=== PATIENT | female | born 1950 | race Caucasian/White ===

== ENCOUNTER 2021-01-06 09:10 | Outpatient (CLI) | payer MEDICARE, SELFPAY ==
--- NOTE | ~2021-01-06 | MM_ITS ---
EXAMINATION: MM screening [facility] BI w phillip HISTORY: Screening mammogram TECHNIQUE: Craniocaudal and mediolateral oblique 3-D tomosynthesis images were obtained and synthetic 2-D images were generated. CAD analysis was submitted and interpreted. COMPARISON: 07/18/2018, 12/24/2016, 01/26/2015 BREAST PARENCHYMAL COMPOSITION: The breasts are heterogeneously dense, which may obscure small masses . FINDINGS: There is no evidence of suspicious mass, calcification, or architectural distortion to sugg est malignancy in either breast. There has been no suspicious interval change. IMPRESSION: 1. No mammographic evidence of malignancy. 2. Recommend routine screening mammography in one year. BI-RADS Category 1: Negative Reviewed, dictated and finalized at location A.
== END 2021-01-06 09:11 | disposition home or self-care (01) ==
LOC: ANHIMG 09:14
PROVIDERS: PCP Emergency Medicine; Visit Provider Obstetrics & Gynecology
DX: Z12.31 Encounter for screening mammogram for malignant neoplasm of breast (principal)
CPT/HCPCS: 77063; 77067

== ENCOUNTER 2021-08-19 14:58 | Emergency (ER) | payer MEDICARE, SELFPAY ==
--- NOTE | ~2021-08-19 | XR_ITS ---
XR wrist RT min 3V 08/19/2021 15:15 Indication: Right wrist pain after fall Procedure: 4 views of the right wrist Comparison: No prior studies for comparison. Findings: There is a nondisplaced intra-articular fracture distal aspect of the radius. 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 No significant s oft tissue abnormality. No radiopaque foreign bodies. Impression: 1: Nondisplaced intra-articular fracture distal aspect of the radius involving the radial styloid. Reviewed, dictated and finalized at location A. E TESTER Impression: 1: Nondisplaced intra-articular fracture distal aspect of the radius involving the radial styloid.
[2021-08-19 15:03] VITALS: BP 127/61; PULSE 77; RESP 18; TEMP 37.2; O2SAT 100
--- NOTE | 2021-08-19 15:33 | ED.UPPEXIN ---
HPI - Extremity Injury (Upper) General Chief Complaint: Extremity Injury, Upper Stated Complaint: rt arm/wrist inj Time Seen by Provider: 08/19/21 15:15 Source: patient, RN notes reviewed and old records reviewed Mode of arrival: ambulatory Limitations: no limitations History of Present Illness HPI narrative: 70-year-old female who presents to [facility] accompanied by cousin with complaints of injury to her right wrist after fall. Patient reports she fell in her driveway at home yesterday with pain and bruising to right wrist area with swelling present and limited ROM of her right wrist with deformity noted. Patient has strong right radial pulse with finger warm and pink, has been using ice to her wrist area. Patient usually lives in [place] in winter but here in area because of sudden of her brother. complaint: injury to: right and wrist Onset (ago): day(s) (1) Related Data Home Medications Medication Instructions Recorded Confirmed ezetimibe mg 08/19/21 ezetimibe mg 08/19/21 Allergies Allergy/AdvReac Type Severity Reaction Status Date / Time Penicillins Allergy Intermediate RASH Verified 08/20/21 08:10 Review of Systems Review of Systems: CONSTITUTIONAL: Denies fever, chills, or sweats. EYES: Denies visual changes, redness, or discharge. ENT: Denies rhinorrhea, congestion, sore throat, or otalgia. CARDIOVASCULAR: Denies chest pain, palpitations, or edema. RESPIRATORY: Denies cough or dyspnea. GASTROINTESTINAL: Denies abdominal pain, nausea, vomiting, or diarrhea. GENITOURINARY: Denies dysuria or hematuria. SKIN: Denies rash or itching. MUSCULOSKELETAL: Denies back pain, positive for right wrist pain with bruising and swelling, or myalgia. NEUROLOGIC: Denies headache, numbness, or weakness. PSYCHIATRIC: Denies anxiety or depression. All systems reviewed & are unremarkable except as noted in HPI and below PMFSH Past Medical History Medical History (Updated 08/20/21 @ 17:02 by Salome Anaya NP) Asthma as child Depression HLD (hyperlipidemia) IBS (irritable bowel syndrome) Surgical History Surgical History (Updated 08/20/21 @ 09:12 by Francisca Holley MD) H/O laparoscopy Family History Family History Sibling Family history of cardiovascular disease Mother Acute myocardial infarction, Onset Age: 84 Father Acute myocardial infarction, Onset Age: 90 Other Family history of congenital heart disease Social History Social History (Updated 08/19/21 @ 16:03 by Salome Anaya NP) Smoking status: Never smoker Alcohol intake: current Substance use: never Gender identity (if verbalized by the patient): Female Comments At time of signature, agree with nursing past medical, surgical, social and family history. There is no relevant family history pertinent to the presenting complaint Exam Narrative: GENERAL: Well-appearing, well-nourished, and in no acute distress. HEAD: Normocephalic, atraumatic. EYES: PERRLA and EOMI. ENT: Nares clear, no rhinorrhea or epistaxis. Mucous membranes moist. NECK: Supple.no lymphadenopathy CHEST: Clear to auscultation. No respiratory distress.SAO2 100% on room air HEART: Regular rate and rhythm. No murmur heard. Normal peripheral pulses. ABDOMEN: Soft, nontender, nondistended, normal active bowel sounds. EXTREMITIES: Normal range of motion. No edema. Exception noted to right wrist which is bruised wit noted deformity and pain with limited mobility, sensation and circulation is intact. SKIN: Warm, dry, no rash. NEURO: No focal deficits. Alert and oriented x3. Course Course Level of Care: Express Care Visit Vital Signs Vital signs: Vital Signs Temperature 37.2 C 08/19/21 15:03 Pulse Rate 77 08/19/21 15:03 Respiratory Rate 18 08/19/21 15:03 Blood Pressure 127/61 08/19/21 15:03 Pulse Oximetry 100 08/19/21 15:03 Temperature 37.2 C 08/19
--- NOTE | 2021-08-19 16:41 | PC.NURSE ---
director call center sales ortho does not return multple calls. pt will attempt to follow up with primary on Saturday.
== END 2021-08-19 16:54 | disposition home or self-care (01) ==
PROVIDERS: Emergency Provider Registered Nurse; PCP Emergency Medicine
DX: S69.91XA Unspecified injury of right wrist, hand and finger(s), initial encounter (principal); S52.514A Nondisplaced fracture of right radial styloid process, initial encounter for closed fracture; W19.XXXA Unspecified fall, initial encounter; E78.5 Hyperlipidemia, unspecified
CPT/HCPCS: 29125; 73110; 99214; A4565; G0463

== ENCOUNTER 2021-08-20 08:00 | Emergency (ER) | payer MEDICARE, SELFPAY ==
[2021-08-20] VITALS (10 sets, daily range): BP systolic 124–137; BP diastolic 62–78; PULSE 66–95; RESP 13–21; TEMP 36.3; O2SAT 95–100
--- NOTE | ~2021-08-20 | CT_ITS ---
EXAMINATION: CT abdomen pelvis w con DATE: 08/20/2021 10:28 INDICATION: Right lower quadrant pain after fall. Blood in stool. Irritable bowel syndrome. TECHNIQUE: Computed tomography (CT) of the abdomen and pelvis was performed with 100 cc Omnipaque 350 intravenous contrast. The dose-length product was 217.08 mGy-cm. Automated exposure control and iter ative reconstruction technique were employed. COMPARISON: None. FINDINGS: Lung bases are unremarkable. Heart size normal. No significant pleural or pericardial effus ion. No significant vascular abnormality. No lymphadenopathy. There is abnormal thickening of the transverse colon, consistent with colitis. No obstruction. No kandice dence for perforation or abscess. There are liver and bilateral renal cysts. The spleen, pancreas, adrenal glands are unremarkable. No significant hydronephrosis. Moderate lumbar spondylosis. There is dextroscoliosis. IMPRESSION: 1. Abnormal thickening of a segment of the transverse colon, compatible with colitis. Reviewed, dictated and finalized at location A. CIPAL EMBEDDED SOFTWARE ENGINEER IMPRESSION: 1. Abnormal thickening of a segment of the transverse colon, compatible with co litis.
[2021-08-20] MEDS: LACTATED RINGERS 1,000 ML 999 ML IV CONT (08:44)
--- NOTE | 2021-08-20 08:52 | ED.ABDPAIN ---
HPI - Abdominal Pain General Chief Complaint: Abdominal Pain Stated Complaint: fell 2 days ago, pain to right side Time Seen by Provider: 08/20/21 08:17 Source: patient, RN notes reviewed and old records reviewed Mode of arrival: ambulatory Limitations: no limitations History of Present Illness HPI narrative: This is a 70 year old female with history of IBS, endometriosis, and hyperlipidemia who presents for evaluation of right lower abdominal pain and bloody bowel movements. Patient states she accidentally slipped and fell 2 days ago. She fell onto her right side injuring her right wrist, but she denies hitting her head. She was seen at [facility] and she was diagnosed right right wrist fracture. She developed right lower abdominal pain yesterday. She reports her pain has been constant and it was severe on onset. Her pain has improved but it is still present this morning. She reports having diarrhea yesterday and she also had BM in which she passed bright red blood. She thought her pain was due to IBS but her pain persisted even having have diarrhea. She has nausea last night but denies vomiting, fever or chills. She also denies taking blood thinners. She denies history of bloody bowel movements. Her last colonoscopy was performed 4 years ago . Related Data Home Medications Medication Instructions Recorded Confirmed ezetimibe mg 08/19/21 ezetimibe mg 08/19/21 Allergies Allergy/AdvReac Type Severity Reaction Status Date / Time Penicillins Allergy Intermediate RASH Verified 08/20/21 08:10 Review of Systems Review of Systems: All systems reviewed & are unremarkable except as noted in HPI and below PMFSH Past Medical History Medical History (Updated 08/20/21 @ 17:02 by Salome Anaya NP) Asthma as child Depression HLD (hyperlipidemia) IBS (irritable bowel syndrome) Surgical History Surgical History (Updated 08/20/21 @ 09:12 by Francisca Holley MD) H/O laparoscopy Family History Family History Sibling Family history of cardiovascular disease Mother Acute myocardial infarction, Onset Age: 84 Father Acute myocardial infarction, Onset Age: 90 Other Family history of congenital heart disease Social History Social History (Updated 08/19/21 @ 16:03 by Salome Anaya NP) Smoking status: Never smoker Alcohol intake: current Substance use: never Gender identity (if verbalized by the patient): Female Exam Const: General: no acute distress and alert Orientation/consciousness: patient oriented x3 Eyes: EOM: EOMs intact bilaterally Resp: Effort & Inspection: normal respiratory effort and no retractions Auscultation: clear to auscultation bilaterally Cardio: Rate: regular rate Rhythm: regular rhythm Heart sounds: no murmurs GI: GI Palp: Yes Soft to palpation, Yes Tenderness to palpation present (GI) (RLQ), No Guarding due to palpation present (GI) and No Rigid due to palpation Auscultation: bowels sounds not normal Back/Spine/Pelvis: Back: no CVA tenderness Skin: General skin exam: normal color Rashes: no rashes Neuro: General: patient oriented x3, moves all extremities and CN's II-XI intact bilaterally Extrem: Other: right wrist in short arm OCL splint, able to move fingers distally Psych: Mental Status: mental status grossly normal Affect: normal affect Course Reevaluation(s) Reevaluation #1: I have discussed with patient that labs are unremarkable but CT shows colitis. She has not passed blood in her stool since yesterday. She has declined rectal exam to evaluation source of bleeding such as hemorrhoid or active bleeding. Date: 08/20/21 Time: 11:09 Vital Signs Vital signs: Vital Signs Temperature 97.4 F L 08/20/21 08:03 Pulse Rate 95 08/20/21 08:03 Respiratory Rate 18 08/20/21 08:03 Blood Pressure 136/62 08/20/21 08:03 Pulse Oximetry 10
[2021-08-20 09:31] LABS: INR 1.2; Partial Thromboplastin Time 31.8 SECONDS (22.3-36.8); Prothrombin Time 14.6 Seconds (11.1-14.7)
[2021-08-20 09:35] LABS: Add Urine Microscopic? YES; Appearance Urine Clear (Clear); Bilirubin Urine Negative (Negative); Blood Urine Negative (Negative); Color Urine Yellow (Yellow); Glucose Urine UA Negative (Negative); Ketones Urine 1+ mg/dL (Negative); Leukocyte Esterase Ur Negative LEU/UL (Negative); Mucus Urine Rare /lpf; Nitrate Urine Negative (Negative); Protein Urine Negative (Negative); RBC Urine 0-2 /hpf (0-2); Specific Grav Ur 1.023 (1.001-1.035); Squamous Epithelial Cell Urine Rare /hpf (Few); Urobilinogen Urine Negative mg/dL (<2.0)
[2021-08-20 09:55] LABS: Alanine Aminotransferase 18 U/L (4-35); Albumin Level 4.6 g/dL (3.5-5.1); Alkaline Phosphatase 70 U/L (38-126); Anion Gap 10 mmol/L (8-16); Aspartate Amino Transferase 41 U/L (14-36); Bilirubin,Total 1.1 mg/dL (0.2-1.3); Blood Urea Nitrogen 15 mg/dL (7-17); Calcium 9.2 mg/dL (8.4-10.2); Carbon Dioxide 23 mmol/L (22-30); Chloride 101 mmol/L (98-107); Estimated CRCL calculation 59 ml/min; Estimated Glomerular Filt Rate > 60; Glucose 102 mg/dL (65-110); Potassium 4.1 mmol/L (3.4-5.0); Sodium 134 mmol/L (137-145)
[2021-08-20 10:31] LABS: Basophils Absolute Auto 0.1 K/mm3 (0.0-0.1); Basophils Percent Auto 0.6 % (0.2-1.2); Eosinophils Absolute Auto 0.2 K/mm3 (0-0.3); Hematocrit 40.8 % (37.0-47.0); Hemoglobin 13.5 g/dL (12.0-15.0); Immature Granulocyte Absolute 0.03 K/mm3 (0.00-0.031); Immature Granulocyte Percent A 0.4 % (0-0.5); Lymphocytes Absolute Auto 0.81 K/mm3 (0.9-3.2); Lymphocytes Percent Auto 10.4 % (18.3-44.2); Mean Corpuscular HGB Conc 33.1 g/dl (32-36); Mean Corpuscular Hemoglobin 32.2 pg (26-34); Mean Corpuscular Volume 97.4 fl (80-100); Mean Platelet Volume 10.8 fl (7.4-10.4); Monocytes Absolute Auto 0.6 K/mm3 (0.1-0.6); Monocytes Percent Auto 7.8 % (2.6-8.5); Neutrophils Absolute Auto 6.2 K/mm3 (1.3-6.7); Neutrophils Percent Auto 78.8 % (45.5-73.1); Platelet Count Result 270 k/mm3 (150-375); Red Blood Count 4.19 M/mm3 (4.2-5.4); White Blood Count 7.8 K/mm3 (4.5-10.0)
== END 2021-08-20 11:30 | disposition home or self-care (01) ==
PROVIDERS: Emergency Provider General Practice; PCP Emergency Medicine
DX: K52.9 Noninfective gastroenteritis and colitis, unspecified (principal); E78.5 Hyperlipidemia, unspecified; K58.9 Irritable bowel syndrome, unspecified; J45.909 Unspecified asthma, uncomplicated; N80.9 Endometriosis, unspecified
CPT/HCPCS: 36415; 74177; 80053; 81001; 85025; 85610; 85730; 96360; 99284; J7120; Q9967

== ENCOUNTER 2022-10-08 09:19 | Outpatient (CLI) | payer MEDICARE, SELFPAY ==
--- NOTE | ~2022-10-08 | MM_ITS ---
EXAMINATION: MM screening [facility] BI w phillip HISTORY: Screening mammogram TECHNIQUE: Craniocaudal and mediolateral oblique 3-D tomosynthesis images were obtained and synthetic 2-D images were generated. CAD analysis was submitted and interpreted. COMPARISON: 01/06/2021, 07/18/2018, 12/24/2016 bilateral screening mammogram examinations BREAST PARENCHYMAL COMPOSITION: The breasts are heterogeneously dense, which may obscure small masses . FINDINGS: Scattered bilateral benign-appearing microcalcifications are again present. There is no kandice dence of suspicious mass, calcification, or architectural distortion to suggest malignancy in either breast. There has been no suspicious interval change. IMPRESSION: 1. No mammographic evidence of malignancy. 2. Recommend routine screening mammography in one year. BI-RADS Category 2: Benign finding(s). Reviewed, dictated and finalized at location A.
== END 2022-10-08 09:20 | disposition home or self-care (01) ==
LOC: ANHIMG 09:23
PROVIDERS: PCP Emergency Medicine; Visit Provider Emergency Medicine
DX: Z12.31 Encounter for screening mammogram for malignant neoplasm of breast (principal)
CPT/HCPCS: 77063; 77067

== ENCOUNTER 2023-06-07 09:45 | Outpatient (CLI) | payer MEDICARE, SELFPAY ==
[2023-06-07 09:59] LABS: Basophils Absolute Auto 0.1 K/mm3 (0.0-0.1); Basophils Percent Auto 0.7 % (0.2-1.2); Eosinophils Absolute Auto 0.3 K/mm3 (0-0.3); Eosinophils Percent Auto 3.7 % (0-4.4); Hematocrit 38.2 % (37.0-47.0); Hemoglobin 12.5 g/dL (12.0-15.0); Immature Granulocyte Absolute 0.01 K/mm3 (0.00-0.031); Immature Granulocyte Percent A 0.1 % (0-0.5); Lymphocytes Absolute Auto 1.76 K/mm3 (0.9-3.2); Lymphocytes Percent Auto 26.2 % (18.3-44.2); Mean Corpuscular HGB Conc 32.7 g/dl (32-36); Mean Corpuscular Hemoglobin 31.1 pg (26-34); Mean Platelet Volume 9.4 fl (7.4-10.4); Monocytes Absolute Auto 0.6 K/mm3 (0.1-0.6); Monocytes Percent Auto 8.9 % (2.6-8.5); Neutrophils Percent Auto 60.4 % (45.5-73.1); Platelet Count Result 295 k/mm3 (150-375); Red Blood Count 4.02 M/mm3 (4.2-5.4); Red Cell Distribution Width 12.9 % (11.5-14.5); White Blood Count 6.7 K/mm3 (4.5-10.0)
== END 2023-06-07 09:46 | disposition home or self-care (01) ==
LOC: ANHLAB 09:47
PROVIDERS: PCP Emergency Medicine; Visit Provider Internal Medicine Hematology & Oncology
DX: D68.69 Other thrombophilia (principal)
CPT/HCPCS: 36415; 85025

== ENCOUNTER 2024-01-01 14:24 | Emergency (ER) | payer MEDICARE, SELFPAY ==
[2024-01-01 14:31] VITALS: BP 152/71; PULSE 77; RESP 16; TEMP 36.9; O2SAT 100
[2024-01-01 14:32] VITALS: BP 152/71; PULSE 77; RESP 16; TEMP 36.9; O2SAT 100
--- NOTE | 2024-01-01 14:49 | ED.FEMALEGU ---
HPI - Female Genitourinary General Chief complaint: Urogenital-Female Stated complaint: Poss UTI Time Seen by Provider: 01/01/24 14:49 Source: patient and RN notes reviewed Mode of arrival: ambulatory Limitations: no limitations History of Present Illness HPI Narrative: 73-year-old female presented for complaint of burning with urination, frequency and suprapubic pressure. Onset 3 days. denies hematuria, nausea, vomiting, abdominal pain, flank pain, constipation, diarrhea, fevers or chills. last UTI was 03/2023. Related Data Home Medications Medication Instructions Recorded Confirmed ezetimibe 10 mg tablet mg 08/19/21 03/20/23 alendronate 70 mg tablet 70 mg PO WEEKLY 02/27/23 03/20/23 fluticasone propionate 50 See Rx Instructions .Route .COMPLEX 02/27/23 03/20/23 mcg/actuation nasal spray,suspension folic acid 1 mg tablet 1 mg PO DAILY 02/27/23 03/20/23 spironolactone 100 mg tablet 100 mg PO DAILY 02/27/23 03/20/23 Allergies Allergy/AdvReac Type Severity Reaction Status Date / Time Penicillins Allergy Intermediate RASH Verified 03/20/23 10:15 Review of Systems Review of Systems: CONSTITUTIONAL: Denies body aches, fever, chills, or sweats. CARDIOVASCULAR: Denies chest pain, palpitations, or edema. RESPIRATORY: Denies cough or dyspnea. GASTROINTESTINAL: Denies abdominal pain, nausea, vomiting, or diarrhea. GENITOURINARY: Reports dysuria, frequency, denies urgency, hematuria, flank pain SKIN: Denies rash, itching, or wounds. MUSCULOSKELETAL: Denies back pain or myalgia. [facility] Past Medical History Medical History Asthma as child Depression HLD (hyperlipidemia) IBS (irritable bowel syndrome) Surgical History Surgical History H/O laparoscopy Family History Family History Sibling Family history of cardiovascular disease Mother Acute myocardial infarction, Onset Age: 84 Father Acute myocardial infarction, Onset Age: 90 Other Arthritis Family history of congenital heart disease Heart disease Hypertension Social History Social History Smoking status: Never smoker Alcohol intake: current Drinks per week: 2 Substance use: never Current Housing: Decline to Answer Concerned About Future Housing: Decline to Answer Difficulty Paying Gas/Electric Bills: Decline to Answer Difficulty Paying for Meds: Decline to Answer Currently Unemployed: Decline to Answer Education: Decline to Answer Difficulty w/ Childcare or Family Care: Decline to Answer Living arrangements: with family Additional occupation/education comments: [employer] Gender identity (if verbalized by the patient): Female Comments At time of signature, I have reviewed and agree with nursing past medical, surgical, social and family history unless otherwise noted. Please see nursing chart for further information. There is no relevant family history pertinent to the presenting complaint Exam Narrative: GENERAL: Well-appearing and in no acute distress. ENT: Mucous membranes pink and moist. NECK: Normal AROM. Supple. CHEST: No respiratory distress. Clear to auscultation. HEART: Regular rate and rhythm. ABDOMEN: Soft, nontender, nondistended, normal active bowel sounds. No CVA tenderness SKIN: Warm, dry, no rash. NEURO: No focal deficits. Alert and oriented x3. Gait steady. PSYCH: Normal affect. Course Course Emergency Course: Patient is aware of diagnosis, understands and agrees to treatment plan. Anticipatory guidance given. Patient agrees to follow-up as directed and is aware of reasons to seek care at the emergency department. Portions of this record may have been created with voice recognition software Level of Care: [facility] Care Visit Vi
[2024-01-01 14:50] LABS: EDUAAPPEAR Cloudy; EDUABILI Negative; EDUABLOOD Negative; EDUACOLOR1 Yellow; EDUAGLUCOSE Negative; EDUAKETONE Negative; EDUALEUKO 2+; EDUANITRATE Negative; EDUAPH 6.5; EDUAPROTEIN Negative; EDUAUROBILI 0.2
== END 2024-01-01 15:02 | disposition home or self-care (01) ==
PROVIDERS: Emergency Provider Nurse Practitioner Family; PCP Emergency Medicine
DX: R30.0 Dysuria (principal); E78.5 Hyperlipidemia, unspecified
CPT/HCPCS: 81003; 87077; 87086; 87088; 87186; 99213; G0463

== ENCOUNTER 2024-11-02 09:53 | Outpatient (CLI) | payer MEDICARE, SELFPAY ==
--- NOTE | ~2024-11-02 | MM_ITS ---
EXAMINATION: MM screening ariana BI w phillip HISTORY: Screening TECHNIQUE: Craniocaudal and mediolateral oblique 3-D tomosynthesis images were obtained and synthetic 2-D images were generated. CAD analysis was submitted and interpreted. COMPARISON: Comparison to multiple prior studies sequentially, with oldest reviewed study dated 01/26. BREAST PARENCHYMAL COMPOSITION: Dense: The breasts are heterogeneously dense, which may obscure small masses FINDINGS: There is no evidence of suspicious mass, calcification, or architectural distortion to sugg est malignancy in either breast. There has been no suspicious interval change. IMPRESSION: 1. No mammographic evidence of malignancy. 2. Recommend routine screening mammography in one year. BI-RADS Category 1: Negative Reviewed, dictated and finalized at location A.
--- OUTSIDE RECORDS SUMMARY | 2024-11-02 10:39 | XMS_ITS | Continuity of Care Document ---
Author Organization [facility] Address [address] [facility] [facility] [address] [place] [address] Phone Care Team Providers Care Clinical Nurse Leader Name Role Phone Fox Vides DO Unavailable [...] Copied on Encounter Offic/outpt E&m Estab Low-mod [facility], [address] [address], [place], [place], [id number], tel:[phone] /[facility] Lumbar (chief complaint) Right hip painLumbar spondylosisLu mbar degenerative disc diseaseLumbar radiculopathy Lumbar spine painIt band syndrome, right Aug- 4 Peewee Braxton. [address] [facility], [facility] [address], [place], [place], [address] , [place]. tel:[phone] Referring Provider: Fox Vides, [address] [facility] [address] [facility], [place], [address] . tel:[phone] Offic/outpt E&m New Mod-hi 45 [facility], [address] [address], [place], [place], [id number], [place] tel:[phone] /[facility] Right hip (chief complaint) Lumbar spine painRight hip painLumbar degenerative disc diseaseLumbar spondylosisLu mbar radiculopathy It band syndrome, right 4 Peewee Braxton. [address] [facility], [facility] [address], [place], [place], [id number] , [place]. tel:[phone] Referring Provider: Fox Vides, [address] [facility] [address], [place], [address] . tel:[phone] Family History Family Member Type Diagnosis Age At Onset Brother Problem (finding) Cardiovascular disease Mother Problem (finding) Cardiovascular disease Mother Problem (finding) Gout Brother Problem (finding) Gout Father Problem (finding) Cardiovascular disease Mother Problem (finding) Colitis Mother Problem (finding) Migraines Payers Payer name Insurance type Covered alliance party ID Authoriza tion(s) Aetna (R) CI [id number] Social History Type Description Quantity Date Captured [...] weekly. She reports she was seen in [place]. No imaging or records available.6 weeks of [...] I have also encouraged her to use [id number] Voltaren over the trochanter on the right. She can ice after activity as well. I will be happy to follow-up with her on an as-needed basis. Patient Care Teams Name Effective Dates (start - stop) Status Members No Information
--- OUTSIDE RECORDS SUMMARY | 2024-11-02 10:39 | XMS_ITS | Continuity of Care Document ---
Author Name [facility] Organization [facility] Care Team Providers Care Engineering Faculty Name Role Phone [facility] Unavailable Unavailable Allergies, Adverse Reactions, Alerts Combined list of allergies from Department of Defense and Veterans Affairs facilities. It does not include entries that were removed or entered in error. Substance Category Reaction Severity Reaction type Status Date Reported Comments Source PENICILLINS Drug allergy (disorder) Unknown active 08/23/2004 [facility] Procedures Combined list of: 1) Procedures from Department of Veterans Affairs facilities going back up to thelast 18 months, not all VA non-surgical procedures are included; 2) All procedures from the Department of Defense facilities. Procedure Procedure Type Code Date Perfomer Comments Sourc e ELECTROCARDIOGRAM, ROUTINE ECG WITH AT LEAST 12 LEADS; WITH INTERPRETATION AND REPORT 05/07/2003 [facility] Social History Combined list of available smoking, tobacco, and other social history from Department of Defense and Veterans Affairs facilities. Social History Type Response Date Comment Sourc e This section is an empty social history section. [facility]
--- OUTSIDE RECORDS SUMMARY | 2024-11-02 10:40 | XMS_ITS | Encounter Summary ---
Author Organization [facility] Address [address] [place] [address] Care Team Providers Care Color Coater Name Role Phone Maynor Orourke MD Unavailable Harry Courtney MD Primary Care Provider [phone] Encounter Details Date Type Department Care Team (Late st Contact Info) Description 01/21/2018 Lab Requisition [facility] Care DermPath Lab 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 Gender Identity Not on file Sexual Orientation Not on file documented as of this encounter Plan of Treatment Not on file documented as of this encounter Procedures Procedure Name Priority Date/Time Associated Diagnosis Comments DERMATOPATH TECHNICAL REPORT Routine 01/20/2018 12:00 AM CDT documented in this encounter Results * DERMATOPATH TECHNICAL REPORT (01/20/2018 12:00 AM CDT) Case Report Dermatopathology Report Case: [id number] Authorizing Provider: Angeli Jenkins MD Collected: 01/20/2018 12:00 AM Pathologist: Ximena Ch MD Received: 01/21/2018 06:15 AM Specimen: Skin, right upper lip 8 11:33 AM CDT DERMATOPATHOLOGY LABORATORY Clinical History R/O BCC vs angioma red papule. Check margins. 11:33 AM CDT DERMATOPATHOLOGY LABORATORY Gross Description Specimen A: Received is one formalin filled container labeled with the patient's name and designated right upper lip. The specimen consists of a shave biopsy measuring [id number]. The margin is inked green. Jar 0. [facility] Dermatopathology Laboratory performed the technical component only. 11:33 AM CDT DERMATOPATHOLOGY LABORATORY Embedded Images 11:33 AM CDT DERMATOPATHOLOGY LABORATORY DISCLAIMER An external and internal positive and negative controls are appropriate for the histochemical, immunohistochemical and immunofluorescence stain(s) in this case (if any), except where stated explicitly. The performance characteristics of the stain(s) cited in this report were developed and its performance characteristic determined by the Dermatopathology Laboratory at [facility]. These tests need not be, and therefore are not, approved by the [place] Food and Drug Administration. The tests are used for clinical purposes. 11:33 AM T DERMATOPATHOLOGY LABORATORY Pathology/Cytolog y TISSUE SPECIMEN FROM SKIN / Unknown 01/20/2018 01/21/2018 6:15 AM CDT Angeli Jenkins MD LAB - PATHOLOGY/CYTOLOGY ORD ERABLES Final Result DERMATOPATHOLOGY LABORATORY [facility] - Department of Dermatology [address] [place] [address], 5th Floor Lab [address] [phone] documented in this encounter Visit Diagnoses Not on filedocumented in this encounter Care Teams Color Coater Relationship Specialty Start Date End Date Harry Courtney MD [address] [facility] [address] [place] [address] PCP - General Internal Medicine 02/16/20 [place] [address] [facility] [facility] [address] [place] [address] Orthopedic Surgery 01/21/18 documented as of this encounter
--- OUTSIDE RECORDS SUMMARY | 2024-11-02 10:40 | XMS_ITS ---
Author Organization [facility] Address [address] [place] [address] Care Team Providers Care Criminal Justice Program Director Name Role Phone Harry Courtney MD Primary Care Provider Unavail able Jared Bateman Unavailable [phone] REASON FOR VISIT Melena, 5ft4 132 Medications Medication SIG (Take, Route, Frequency, Duration) Notes Start Date End Date Status Nortriptyline HCl Ac tive ALPRAZolam Active OTC/Vitamins Vit B12 Active Dicyclomine HCl 10 MG 1 capsules Orally Three times a day PRN for 30 day(s) 09/08/2021 04/28/2024 Not-Taking NexIUM 20 MG 1 capsule Orally prn Active Alendronate Sodium A ctive Spironolactone Activ e Ezetimibe Active traZODone HCl 04/28/2024 Not-T aking Encounters Encounter Location Date Provider Diagnosis [facility] [address] [place] [address] 05/02/2024 Jared Bateman Heartburn R12 ; Melena K92.1 and Other specified disease of esophagus K22.89 Assessments Encounter Date Diagnosis (ICD Code) Assessment Notes Treatment Notes Treatment Clinical Notes Section Notes 05/02/2024 Heartburn (ICD-10 - R12) 05/02/2024 Melena (ICD-10 - K92.1) 05/02/2024 Other specified disease of esophagus (ICD-10 - K22.89) Plan Of Treatment Next Appt Details Follow Up: Call to set up a SBS DX: melena, Reason: Progress Notes * Renetta DEVLIN LDOB:1950 (73 yo F)Acc No.[id number]:05/02/2024 Patient: Renetta Cortes Provider: Marcell Bateman M.D. :1950 A ge:73 Y S ex:Female Date:05/02/2024 Address:[address] [place] [address] Pcp:Harry Courtney MD Subjective: * Chief Complaints: * M anurag, 5ft4 132 * Medical History: * Surgical History: * Hospitalization/Major Diagno stic Procedure: * Medications: T akingNexIUM 20 MG Capsule Delayed Release 1 capsule Orally prnNortriptyline HCl Alendronate Sodium Spironolactone Ezetimibe ALPRAZolam OTC/Vitamins , Notes: Vit [id number] NexIUM 20 MG Capsule Delayed Release 1 capsule Orally prnTaking Nortriptyline HCl Taking Alendronate Sodium Taking Spironolactone Taking Ezetimibe Taking ALPRAZolam Taking OTC/Vitamins , Notes: Vit [id number] HCl , stop date 04/28/2024icyclomine HCl 10 MG Capsule 1 capsules Orally Three times a day PRN, stop date 04/28/2024Not-Taking traZODone HCl , stop date 04/28/2024Not-Taking Dicyclomine HCl 10 MG Capsule 1 capsules Orally Three times a day PRN, stop date 04/28/2024 Objective: Assessment: * Assessment: 1. H eartburn - R12 (Primary) 2 . M anurag - K92.1 3 . O ther specified disease of esophagus - K22.89 Plan: * Treatment: * Procedure Codes: 4 3239 UPPER GI ENDOSCOPY, BIOPSY * Follow Up: C all to set up a SBS DX: melena * Images: * Sign off status: Completed true * Provider: Marcell Bateman M.D. Date: 07/02/2023 Generated for Jose dumont/Jennifer/eTransmitting on: 0 11/02/2024 10:40 AM CDT
--- OUTSIDE RECORDS SUMMARY | 2024-11-02 10:40 | XMS_ITS | Encounter Summary ---
Author Organization [facility] Address [address] [place] [address] Care Team Providers Care Deck Scaler Name Role Phone Maynor Orourke MD Unavailable Harry Courtney MD Primary Care Provider [phone] Encounter Details Date Type Department Care Team (Late st Contact Info) Description 03/18/2018 Lab Requisition [facility] Care DermPath Lab [address] [facility] [address], [place] [address] Angeli Jenkins MD [address] [facility] [address] [place] [address] Social History Tobacco Use Types Packs/Day Years Used Date Smoking Tobacco: Never Smokeless Tobacco: Never Comments Unknown Sex and Gender Information Value Date Recorded Sex Assigned at Not on file Legal Sex 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 Gender Identity Not on file Sexual Orientation Not on file documented as of this encounter Plan of Treatment Not on file documented as of this encounter Procedures Procedure Name Priority Date/Time Associated Diagnosis Comments DERMATOPATH TECHNICAL REPORT Routine 03/17/2018 12:00 AM CDT documented in this encounter Results * DERMATOPATH TECHNICAL REPORT (03/17/2018 12:00 AM CDT) Case Report Dermatopathology Report Case: [id number] Authorizing Provider: Angeli Jenkins MD Collected: 03/17/2018 12:00 AM Pathologist: Jeff Rico MD Received: 03/18/2018 06:25 AM Specimen: Skin, right upper lip 8 4:22 PM CDT DERMATOPATHOLOGY LABORATORY Clinical History R/O SCC. Prior [place] to base. 8 4:22 PM CDT DERMATOPATHOLOGY LABORATORY Gross Description Specimen A: Received is one formalin filled container labeled with the patient's name and designated right upper lip. The specimen consists of a punch measuring [id number]. Jar 0. [facility] Dermatopathology Laboratory performed the technical component only. 8 4:22 PM CDT DERMATOPATHOLOGY LABORATORY Embedded Images 4:22 PM CDT DERMATOPATHOLOGY LABORATORY DISCLAIMER An external and internal positive and negative controls are appropriate for the histochemical, immunohistochemical and immunofluorescence stain(s) in this case (if any), except where stated explicitly. The performance characteristics of the stain(s) cited in this report were developed and its performance characteristic determined by the Dermatopathology Laboratory at [facility]. These tests need not be, and therefore are not, approved by the [place] Food and Drug Administration. The tests are used for clinical purposes. 8 4:22 PM CDT DERMATOPATHOLOGY LABORATORY Pathology/Cytolog y TISSUE SPECIMEN FROM SKIN / Unknown 03/17/2018 03/18/2018 6:25 AM CDT Angeli Jenkins MD LAB - PATHOLOGY/CYTOLOGY ORD ERABLES Final Result DERMATOPATHOLOGY LABORATORY [facility] - Department of Dermatology [address] [place] [address], 5th Floor Lab [address] [phone] documented in this encounter Visit Diagnoses Not on filedocumented in this encounter Care Teams Deck Scaler Relationship Specialty Start Date End Date Harry Courtney MD [address] [facility] [address] [place] [address] PCP - General Internal Medicine 02/16/20 [place] [address] [place] [address] Orthopedic Surgery 01/21/18 documented as of this encounter
--- OUTSIDE RECORDS SUMMARY | 2024-11-02 10:40 | XMS_ITS | Continuity of Care Document ---
Author Organization [facility] Address [address] [place] [address] Phone Care Team Providers Care Driller Helper Name Role Phone Boaz Blue Unavailable Unavailable Allergies, Adverse Reactions, Alerts Substance [...] X-ray exam knee, 4+ views [place] Advance Directives Directive Yes / No Effective Date File Name No Information Encounters Encounter Description Practice Location Reason(s) For Visit Diagnoses Date Provider Providers Copied on Encounter Office/outpat ient visit,est, mod [facility], [address], [id number], [place] tel:[phone] [facility] Left knee (chief complaint) Unilateral primary osteoarthri tis, left knee 7 Mirza cheung. [address] [facility], [address], [place], [place], [id number] , [place]. tel:[phone] Referring Provider: Boaz Luu, [address] [facility] [address] [facility], [place], [address]. tel:[phone] Office/outpat ient visit,new, mod [facility], [address], [place], [place], [id number], tel:[phone] [facility] Left knee pain (chief complaint) Unilateral primary osteoarthri tis, left kneeStrain of other muscle of post muscle group at left lower leg level, initial encounter Mirza Gagnon er. [address] [facility], [address], [place], [place], [id number] , [place]. tel: [phone] Referring Provider: Boaz Luu, [address] [facility], [place], [address]. tel:[phone] Family History Family Member Type Diagnosis Age At Onset Father Problem (finding) Heart trouble Father Problem (finding) hypertension Mother Problem (finding) hypertension Brother Problem (finding) Heart trouble Mother Problem (finding) Heart trouble Payers Payer name Insurance type Covered alliance party ID Authoriza tion(s) [place] W[place] Part B [id number] [facility] [id number] J C Lads [id number] Social History Type Description Quantity Date Captured [...]
--- OUTSIDE RECORDS SUMMARY | 2024-11-02 10:40 | XMS_ITS | Patient Health Record ---
Author Organization [employer] Address [address] [place] [address] Care Team Providers Care Criminal Judge Name Role Phone Harry Courtney MD Primary Care Provider Unavail able Jared Bateman Unavailable [phone] Allergies Allergen (clinical drug ingredient) Drug/Non Drug Allergy documented on EMR Reaction Allergy Type Onset Date Status Penicillin Other Drug Allergy active Results Component Value Reference Range Notes Xray Small Bowel Series Reviewed date:05/08/2024 06:49:04 AM Interpretation: Performing Lab: Notes/Report: Pathology Report Reviewed date:05/13/2024 01:27:02 PM Interpretation: Performing Lab: Notes/Report: DIAGNOSES A. GE Junction , Biopsy: -Squamous mucosa with reflux associated changes. -Gastric cardia type mucosa with chronic inflammation and foveolar hyperplasia. -Alcian blue/PAS stain is negative for intestinal metaplasia; no fungal organisms seen. -Giemsa stain is negative for Helicobacter pylori organisms. CLINICAL HISTORY Heartburn. Melena. Z-line irregular at the gastroesophageal junction. GROSSING DESCRIPTION A. The specimen is received in a Formalin-filled container labeled with the patient's name and designated GE Junction It contains multiple fragments of colin tissue that measure from 1x1x1 to 2x2x1 mm. The specimen was entirely submitted into a single cassette for processing. MICROSCOPIC DESCRIPTION Complete 100 microscopic examination is performed. The findings are included in the diagnosis rendered. Specimen A was evaluated with H&E stain. Specimen A was evaluated with Rapid Giemsa stain. Specimen A was evaluated with Alcian Blue PAS stain. Textual Pathology Report SEE NOTES CBC With Differential/Platel et Reviewed date:03/24/2024 07:51:43 AM Interpretation: Performing Lab:[place], [id number] [facility], [id number] Padmini Friedman MD Notes/Report: NON-FASTING FASTING:NO FASTING: NO WHITE BLOOD CELL COUNT 7.6 3.8-10.8 Thousand/ uL RED BLOOD CELL COUNT 4.23 3.80-5.10 Million/uL HEMOGLOBIN 13.3 11.7-15.5 g/dL HEMATOCRIT 41.3 35.0-45.0 % MCV 97.6 80.0-100.0 fL MCH 31.4 27.0-33.0 pg MCHC 32.2 32.0-36.0 g/dL RDW 12.5 11.0-15.0 % PLATELET COUNT 348 140-400 Thousand/uL MPV 10.5 7.5-12.5 fL ABSOLUTE NEUTROPHILS [phone] cells/uL ABSOLUTE LYMPHOCYTES 2105 850-3900 cells/uL ABSOLUTE MONOCYTES 646 200-950 cells/uL ABSOLUTE EOSINOPHILS 129 15-500 cells/uL ABSOLUTE BASOPHILS 61 0-200 cells/uL NEUTROPHILS 61.3 LYMPHOCYTES 27.7 MONOCYTES 8.5 EOSINOPHILS 1.7 BASOPHILS 0.8 Reason For Referral No Information Medications Medication SIG (Take, Route, Fr equency, Duration) Notes Start Date End Date Status Nortriptyline HCl Ac tive Alendronate Sodium A ctive Spironolactone Activ e Ezetimibe Active ALPRAZolam Active OTC/Vitamins Vit B12 Active NexIUM 20 MG 1 capsule Orally prn Active Immunizations Vaccine Route Administration Date Status Comme nts Influenza Vaccination Unknown 01/29/2021 Administered Pneumococcal conjugate PCV 13 Unknown 12/29/2020 Admini stered Pneumococcal polysaccharide PPV23 Unknown 07/02/2018 Ad ministered Social History Tobacco Use: Social History Observation Description Date Details (start date - stop date) Never Smoker NA - NA Tobacco Use/Smoking Question Answer Notes Are you a nonsmoker Problems Problem Type SNOMED Code ICD Code Onset Dates Problem Status W/U Status Risk Notes Problem 931266018 Abdominal cramping (R10.9) Active confirmed Problem 448706921 Abnormal CT scan, colon (R93.3) Active confirmed Problem [id number] Irregular bowel habits (R19.8) Active confirmed Vital Signs Height 65 in 03/19/2024 Weight 133 lbs 03/19/2024 BMI 22.13 kg/m2 03/19/2024 Procedures Procedure Date Ordered Date Performed Result Body Sit e Upper Endoscopy 03/19/2024 N/A Encounters Encounter Location Date Provider Diagnosis [address] [place] [address] 03/19/2024 Jared Bateman Melena K92.1 ; Diarrhea R19.7 ; Colon cancer screening Z12.11 ; Heartburn R12 and Abdominal pain R10.9 [facility] [address] [place] [address] 05/02/2024 Jared Bateman Heartburn R12 ; Melena K92.1 and Other specified disease of esophagus K22.[address] [place] [address] 03/17/2024 Jared Bateman [address] [place] [address] 04/28/2024 Jared Bateman [address] [place] [address] 05/02/2024 Jared Bateman Melena K92.[address] [place] [address] 05/18/2024 Jared Bateman Assessments Encounter Date Diagnosis (ICD Code) Assessment Notes Treatment Notes Treatment Clinical Notes Section Notes 03/19/2024 Melena (ICD-10 - K92.1) 1. Given the recent black stool, I will check a CBC.2. I have asked the patient to use her Nexium 20 mg daily.3. She is to call me if she has any recurrent abdominal discomfort or black/tarry stool.4. We will proceed with upper endoscopy in the near timeframe. I have discussed alternatives, benefits and potential risks. Risks include but are not limited to , bleeding, infection, pain, aspiration, arrhythmia, adverse medication reaction, perforation, missed pathology and others. Patient voiced clear understanding and desire to proceed.5. Avoid aspirin and nonsteroidal medications.6. Timing of next colonoscopy reviewed with the patient as long as review of systems remains negative.7. She is otherwise encouraged to return to the care of her primary doctor. Thank you kindly for allow me to see this very pleasant woman. MELENA, ABDOMINAL PAIN-patient is a very pleasant 73-year-old female with recent onset abdominal discomfort and black/tarry stool. Symptoms lasted for 5 days and now have resolved. Recent Pepto-Bismol use although she believes her black stool predated the use of that medication. Differential diagnosis includes self-limited gastroenteritis , peptic ulcer disease, gastritis, esophagitis or other. I believe it would be reasonable to proceed with upper endoscopy. Alternatives, benefits and risk discussed. Furthermore, I have asked her to avoid aspirin and nonsteroidal medications. HEARTBURN-infre quent symptoms without alarm symptoms other than black stool noted above. I have asked her to use her Nexium daily. Use and side effect profile reviewed. COLON CANCER SCREENING-negat marva colonoscopy 2-1/2 years ago. Family history is significant for inflammatory bowel disease in her mother. 03/19/2024 Diarrhea (ICD-10 - R19.7) MELENA, ABDOMINAL PAIN-patient is a very pleasant 73-year-old female with recent onset abdominal discomfort and black/tarry stool. Symptoms lasted for 5 days and now have resolved. Recent Pepto-Bismol use although she believes her black stool predated the use of that medication. Differential diagnosis includes self-limited gastroenteritis , peptic ulcer disease, gastritis, esophagitis or other. I believe it would be reasonable to proceed with upper endoscopy. Alternatives, benefits and risk discussed. Furthermore, I have asked her to avoid aspirin and nonsteroidal medications. HEARTBURN-infre quent symptoms without alarm symptoms other than black stool noted above. I have asked her to use her Nexium daily. Use and side effect profile reviewed. COLON CANCER SCREENING-negat marva colonoscopy 2-1/2 years ago. Family history is significant for inflammatory bowel disease in her mother. 05/02/2024 Heartburn (ICD-10 - R12) 05/02/2024 Melena (ICD-10 - K92.1) 05/02/2024 Melena (ICD-10 - K92.1) 03/19/2024 Colon cancer screening (ICD-10 - Z12.11) MELENA, ABDOMINAL PAIN-patient is a very pleasant 73-year-old female with recent onset abdominal discomfort and black/tarry stool. Symptoms lasted for 5 days and now have resolved. Recent Pepto-Bismol use although she believes her black stool predated the use of that medication. Differential diagnosis includes self-limited gastroenteritis , peptic ulcer disease, gastritis, esophagitis or other. I believe it would be reasonable to proceed with upper endoscopy. Alternatives, benefits and risk discussed. Furthermore, I have asked her to avoid aspirin and nonsteroidal medications. HEARTBURN-infre quent symptoms without alarm symptoms other than black stool noted above. I have asked her to use her Nexium daily. Use and side effect profile reviewed. COLON CANCER SCREENING-negat marva colonoscopy 2-1/2 years ago. Family history is significant for inflammatory bowel disease in her mother. 03/19/2024 Heartburn (ICD-10 - R12) MELENA, ABDOMINAL PAIN-patient is a very pleasant 73-year-old female with recent onset abdominal discomfort and black/tarry stool. Symptoms lasted for 5 days and now have resolved. Recent Pepto-Bismol use although she believes her black stool predated the use of that medication. Differential diagnosis includes self-limited gastroenteritis , peptic ulcer disease, gastritis, esophagitis or other. I believe it would be reasonable to proceed with upper endoscopy. Alternatives, benefits and risk discussed. Furthermore, I have asked her to avoid aspirin and nonsteroidal medications. HEARTBURN-infre quent symptoms without alarm symptoms other than black stool noted above. I have asked her to use her Nexium daily. Use and side effect profile reviewed. COLON CANCER SCREENING-negat marva colonoscopy 2-1/2 years ago. Family history is significant for inflammatory bowel disease in her mother. 05/02/2024 Other specified disease of esophagus (ICD-10 - K22.89) 03/19/2024 Abdominal pain (ICD-10 - R10.9) MELENA, ABDOMINAL PAIN-patient is a very pleasant 73-year-old female with recent onset abdominal discomfort and black/tarry stool. Symptoms lasted for 5 days and now have resolved. Recent Pepto-Bismol use although she believes her black stool predated the use of that medication. Differential diagnosis includes self-limited gastroenteritis , peptic ulcer disease, gastritis, esophagitis or other. I believe it would be reasonable to proceed with upper endoscopy. Alternatives, benefits and risk discussed. Furthermore, I have asked her to avoid aspirin and nonsteroidal medications. HEARTBURN-infre quent symptoms without alarm symptoms other than black stool noted above. I have asked her to use her Nexium daily. Use and side effect profile reviewed. COLON CANCER SCREENING-negat marva colonoscopy 2-1/2 years ago. Family history is significant for inflammatory bowel disease in her mother. Plan Of Treatment Pending Test Test Name Order Date Upper Endoscopy 03/19/2024 Colonoscopy 09/08/2021 Insurance Providers Payer Name Payer Address Payer Phone Subscriber Number Group Number Insured Name Patient Relationship to Insured Coverage Start Date Coverage End Date [employer] Medicare Ppo E2 [address] [place] [address] [id number] Renetta Galindo Self - patient is the insured 4 Medical (General) History Medical History History ICD Code Hemorrhoids IBS Asthma Hearing Loss GERD Surgical History Surgery Date(Month/Year) Colonoscopy:The examined por tion of the ileum was normal. The entire examined colon is normal. Hemorrhoids. No specimens collected. 10/2021 Joint Replacement
--- OUTSIDE RECORDS SUMMARY | 2024-11-02 10:40 | XMS_ITS | Clinical Summary ---
Author Organization [facility] Address [address] [place] [address] Care Team Providers Care Applications Processor Name Role Phone Harry Courtney MD Primary Care Provider [phone] Allergies Active Allergy Reactions Criticality Noted Date Comments Penicillin G Rash Medium 09/06/2021 Reaction: rash, Medications ezetimibe (ZETIA) 10 mg tablet Take 10 mg by mouth daily. 05/29/2021 Active spironolactone (ALDACTONE) 100 mg tablet Take 100 mg by mouth daily. 07/13/2020 Active traZODone (DESYREL) 50 mg tablet TAKE 1/2 TABLET BY MOUTH EVERY NIGHT AT BEDTIME 07/30/2021 Active nortriptyline (PAMELOR) 25 mg capsule Take 1 Capsule by mouth. 02/15/2020 Active alendronate (FOSAMAX) 35 mg tablet Take 1 Tablet by mouth. 12/23/2020 Active celecoxib (CeleBREX) 200 mg capsule Take 200 mg by mouth 2 times daily. 01/07/2022 Active Active Problems Problem Noted Date Diagnosed Date Secondary hypercoagulable state 09/06/2021 Family History Relation Name Status Comments Brother 1 Alive Brother 2 Father Mother Son Alive Social History Tobacco Use Types Packs/Day Years Used Date Smoking Tobacco: Never Tobacco Cessation:Counseling Given: Not Answered Alcohol Use Standard Drinks/Week Comments Yes 0 (1 standard drink = 0.6 oz pur e alcohol) Comments Unknown Sex and Gender Information Value Date Recorded Sex Assigned at Not on file Legal Sex Female 9:24 AM RESEARCH COMPLIANCE SPECIALIST Gender Identity Not on file Sexual Orientation Not on file Last Filed Vital Signs Vital Sign Reading Time Taken Comments Blood Pressure 147/91 06/07/2023 10:07 AM RESEARCH COMPLIANCE SPECIALIST Pulse 67 06/07/2023 10:06 AM RESEARCH COMPLIANCE SPECIALIST Temperature 36.3 C (97.3 F) 06/08/2022 2:00 PM RESEARCH COMPLIANCE SPECIALIST Respiratory Rate 10 06/07/2023 10:06 AM RESEARCH COMPLIANCE SPECIALIST Oxygen Saturation 99% 06/07/2023 10:06 AM RESEARCH COMPLIANCE SPECIALIST Inhaled Oxygen Concentration - - Weight 61.2 kg (135 lb) 06/07/2023 10:06 AM RESEARCH COMPLIANCE SPECIALIST Height 165.1 cm (5' 5 ) 01/31/2022 11:46 AM CDT Body Mass Index 22.47 01/31/2022 11:46 AM CDT Plan of Treatment Health Maintenance Due Date Last Done Comments DTAP/TDAP/TD VACCINES (1 - Tdap) 12/11/1970 BREAST CANCER SCREENING 1991 COLORECTAL SCREENING 12/11/1996 Colorectal Cancer Screening 12/11/1996 FIT-DNA Q 3 years 12/11/1996 FIT/FOBT Q 1 year 12/11/1996 Flex Sig/CT Colonography Q 5 years 12/11/1996 RSV VACCINE (60+ or ) (1 - Risk 60-74 years 1-dose series) 2011 ZOSTER VACCINE (2 of 3) 03/26/2015 01/29/2015 OSTEOPOROSIS SCREENING 12/11/2016 INFLUENZA VACCINE (#1) 2024 , 03/23/2020, 04/24/2016, Additional history exists COVID-19 Vaccine (2023-2 5 season) 2024 04/21/2021, 08/03/2020, 07/06/2020 PNEUMOCOCCAL VACCINE 50+ YEARS Completed 0 12/29/2020, 07/02/2018, 07/01/[address] [facility] Care Teams Applications Processor Relationship Specialty Start Date End Date Harry Courtney MD [address] [place] [id number] PCP - General Internal Medicine 09/21/21
--- OUTSIDE RECORDS SUMMARY | 2024-11-02 10:40 | XMS_ITS | Clinical Summary ---
Author Organization [facility] Address [address] [place] [address] Care Team Providers Care Co Op Name Role Phone Maynor Orourke MD Unavailable [phone] Harry Courtney MD Primary Care Provider [phone] Source Comments [facility],non-owned Affiliates and Associated Physician Practices is amultiple site organization consisting of ambulatory clinics and hospital sitesin [place], [place], [place] and [place]. This disclosure is being madepursuant to the Care Everywhere program and may not contain all information available regarding this patient. Last updated 18.[facility] Allergies Active Allergy Reactions Criticality Noted Date Comments Penicillin G Rash Medium Reaction: rash, Medications * Be aware that medications may not be up to date on this document. Alwaysverify current medications with the patient. traZODone (DESYREL) 50 MG tablet Take 0.5 (one-half) tablet by mouth at bedtime 2 8 Active fluticasone propionate (FLONASE) 50 MCG/ACT nasal spray [place] 2 sprays into each nostril as needed 0 Active nortriptyline (PAMELOR) 25 MG capsule Take 1 (one) capsule by mouth at bedtime 0 Active spironolactone (ALDACTONE) 100 MG tablet Take 1 (one) tablet by mouth once daily 1 Active alendronate (FOSAMAX) 35 MG tablet Take 1 (one) tablet by mouth every 7 days before meal 1 Active ezetimibe (ZETIA) 10 MG tablet Take 1 (one) tablet by mouth once daily 1 Active Folic Acid 5 MG Take by mouth once daily Active dicyclomine (BENTYL) 10 MG capsule 1 capsules 2 Active ELIQUIS 2.5 MG tablet Take 1 tablet by mouth 2 times daily 2 Active clindamycin (Cleocin) 300 MG capsule Take 2 (two) capsules by mouth 1 Hour prior to Dental Appointment 2 capsule 11 3 Active atorvastatin (Lipitor) 10 MG tablet Take 1 (one) tablet by mouth once daily 3 Active celecoxib (CeleBREX) 200 MG capsule Take 1 (one) capsule by mouth 2 times daily 60 capsule 5 3 Active Active Problems Problem Noted Date Diagnosed Date History of left knee replacement 12/18/2021 Abdominal pain 12/15/2021 Abnormal computed tomography scan 12/15/2021 Gastroesophageal reflux disease 12/15/2021 Hyperlipidemia 12/15/2021 Irregular bowel habits 12/15/2021 Secondary hypercoagulable state 09/06/2021 Primary osteoarthritis of left knee 01/21/2018 Immunizations Immunization Administration Dates Next Due Covid Moderna primary monova lent 12+ yr 0.5mL 04/21/2021,08/03/2020,07/06/2020 INFLUENZA VACCINE, HIGH-DOSE , QUADR. (FLUZONE HIGH-DOSE QUADRIVALENT; 65Y+), 0.7 ML (HD-IIV4) 03/23/2020 Social History Tobacco Use Types Packs/Day Years Used Date Smoking Tobacco: Never Smokeless Tobacco: Never Alcohol Use Standard Drinks/Week Comments Yes 0 (1 standard drink = 0.6 oz pur e alcohol) 3-4 glasses of wine/week AUDIT-C Answer Date Recorded Q1: How often do you have a drink containing alcohol? Monthly or less 11/22/2021 Q2: How many drinks containi ng alcohol do you have on a typical day when you are drinking? Patient does not drink Q3: How often do you have si x or more drinks on one occasion? Never 11/22/2021 PHQ-2 Answer Date Recorded Patient Health Questionnaire-2 Score 1 05/02/2023 Hunger Vital Sign Answer Date Recorded Within the past 12 months, y ou worried that your food would run out before you got the money to buy more. Never true 11/24/19 22 Within the past 12 months, t he food you bought just didn't last and you didn't have money to get more. Never true 11/23/2021 Comments Unknown Sex and Gender Information Value Date Recorded Sex Assigned at Not on file Legal Sex Female 6:25 AM [employer] Gender Identity Not on file Sexual Orientation Not on file Last Filed Vital Signs Vital Sign Reading Time Taken Comments Blood Pressure 114/57 11/23/2021 8:31 AM CDT Pulse 67 11/23/2021 8:31 AM CDT Temperature 36.7 C (98 F) 11/23/2021 5:31 AM CDT Respiratory Rate 18 11/23/2021 5:31 AM CDT Oxygen Saturation 100% 11/23/2021 8:31 AM CDT Inhaled Oxygen Concentration - - Weight 61.2 kg (135 lb) 05/02/2023 10:30 AM CDT Height 162.6 cm (5' 4 ) 05/02/2023 10:30 AM CDT Body Mass Index 23.17 05/02/2023 10:30 AM CDT Plan of Treatment Health Maintenance Due Date Last Done Comments BONE DENSITY TESTING 1950 COLOGUARD (AGES 45-75) - COLON CA SCREENING 1950 COLON MONITORING 1950 COLONOSCOPY - COLON CA SCREENING 1950 CT COLONOGRAPHY - COLON CA SCREENING 1950 Colorectal Cancer Screening 1950 FIT - COLON CA SCREENING 1950 FLEX SIG - COLON CA SCREENING 1950 MAMMOGRAM 1950 HEPATITIS C SCREENING 12/07/1969 DTAP/TDAP/TD VACCINES (1 - Tdap) 12/11/1970 PNEUMOCOCCAL VACCINE 50+ (1 of 1 - PCV) 12/11/2001 ZOSTER VACCINE (1 of 2) 12/11/2001 COVID-19 VACCINE (4 - season) 2024 04/21/2021, 08/03/2020, 07/06/2020 DEPRESSION SCREENING 07/01/2024 05/02/2023 MEDICARE AWV CALENDAR YEAR 2024 INFLUENZA VACCINE (Season Ended) 2025 03/27/2021, 03/23/2020, 04/10/2018, Additional history exists Respiratory Syncytial Virus (RSV) Vaccine Pt: or over 60 yrs (1 - 1-dose 75+ series) 12/11/2026 HEPATITIS B VACCINE Aged Out No longe r eligible based on patient's age to complete this topic HIB VACCINE Aged Out No longer eligi ble based on patient's age to complete this topic HPV VACCINE Aged Out No longer eligi ble based on patient's age to complete this topic MENINGOCOCCAL (Group B) VACCINE SHARED DECISION-MAKING Aged Out No longer eligible based on patient's age to complete this topic MENINGOCOCCAL GROUPS A/C/Y/W VACCINE Aged Out No longer eligible based on patient's age to complete this topic Medical Devices Implanted Type Area Enterprise Mob[employer] Architect Device Identifier Shelf Expiration Date Model / Serial / Lot Cmnt Bone Djo Srg Cblt 40gm Hvisc Strl Implanted:Qty: 1 on 11/22/2021 by Maynor Orourke MD at [facility] Left: Knee [employer] 01/22/2023 [id number] / / [id number] Tray Tib 71mm Kn Cocr I Beam Implanted:Qty: 1 on 11/22/2021 by Maynor Orourke MD at [facility] Left: Knee [employer] 09/23/2031 [id number] / / [id number] Cmpnt Fem Kn Lt Cr Cmnt Prm Vngrd Intlk 67.5 Mm Implanted:Qty: 1 on 11/22/2021 by Maynor Orourke MD at [facility] Left: Knee [employer] 09/23/2031 [id number] / / [id number] Cmpnt Ptlr 28mm 1 Pg Wire Ascnt Arcm Kn Implanted:Qty: 1 on 11/22/2021 by Maynor Orourke MD at [facility] Left: Knee [employer] 11/22/2026 [id number] / / [id number] Vngrd Arcm Kn Ant Stab Implanted:Qty: 1 on 11/22/2021 by Maynor Orourke MD at [facility] Left: Knee [employer] 09/22/2026 [id number] / / [id number] Insurance AET MEDICARE ADV [facility] MEDICARE ADV Advance Directives * Full Code (Latest Code Status on File) Date Activated Date Inactivated Comments 11/22/2021 1:06 PM 11/23/2021 2:18 PM Care Teams Co Op Relationship Specialty Start Date End Date Harry Courtney MD [address] [place] [address] PCP - General Internal Medicine 02/16/20 [place] [address] [facility] [address] [address] [place] [address] Orthopedic Surgery 01/21/18
--- OUTSIDE RECORDS SUMMARY | 2024-11-02 10:40 | XMS_ITS | Continuity of Care Document ---
Author Organization [facility] Address [address] [place] [address] Phone Care Team Providers Care Health And Safety Specialist Name Role Phone Filiberto Goyal Unavailable Unavailable Procedures Procedure Date Eye Exam, New Patient Advance Directives Directive Yes / No Effective Date File Name No Information Encounters Encounter Description Practice Location Reason(s) For Visit Diagnoses Date Provider Providers Copied on Encounter [facility], [address], [place], [place], [id number], [place] tel:[phone] [facility] No Information [address] , [address], [place], [address], [place]. tel:[phone] Referring Provider: Abdullahi Arroyo OD, [address] [place], [address]. tel:[phone] Family History Family Member Type Diagnosis Age At Onset No Information Payers Payer name Insurance type Covered alliance party ID Authoriza tion(s) No Information Social [...]
== END 2024-11-02 09:54 | disposition home or self-care (01) ==
LOC: ANHIMG 09:55
PROVIDERS: PCP Emergency Medicine; Visit Provider Emergency Medicine
DX: Z12.31 Encounter for screening mammogram for malignant neoplasm of breast (principal)
CPT/HCPCS: 77063; 77067

== ENCOUNTER 2024-12-25 08:13 | Emergency (ER) | payer MEDICARE, SELFPAY ==
--- NOTE | 2024-12-25 08:17 | ED.URI ---
HPI - URI/Sore Throat General Chief Complaint: Upper Respiratory Infection Stated Complaint: Cough/Trouble Breathing Time Seen by Provider: 12/25/24 08:34 Source: patient and RN notes reviewed Mode of arrival: ambulatory Limitations: no limitations History of Present Illness HPI Narrative: 74-year-old female presents with concern for 2 week history of cough. She reports coughing fits that cause her to feel short of breath and like she is choking. Reports she has become more tired since the symptoms started. She has been using Mucinex, she has been using an albuterol inhaler that she has not home. Reports he albuterol inhaler seems to make her symptoms worse. She denies fever, body aches, chills. Reports sweats. She reports she had runny nose and sore throat with symptoms started but no longer does. MD elicited complaint: cough Related Data Home Medications ?Medication ?Instructions ?Recorded ?Confirmed ?Last Taken ?Type ezetimibe 10 mg tablet mg 08/19/21 02/19/24 Unknown History fluticasone propionate 50 See Rx Instructions .Route .COMPLEX 02/27/23 02/19/24 Unknown History mcg/actuation nasal spray,suspension folic acid 1 mg tablet 1 mg PO DAILY 02/27/23 02/19/24 Unknown History spironolactone 100 mg tablet 100 mg PO DAILY 02/27/23 02/19/24 Unknown History alprazolam 0.25 mg tablet 0.25 mg PO QHS 02/19/24 02/19/24 Unknown History Allergies Allergy/AdvReac Type Severity Reaction Status Date / Time Penicillins Allergy Intermediate RASH Verified 12/25/24 08:31 Review of Systems Review of Systems: CONSTITUTIONAL: Denies malaise, chills, or fever. Reports sweats EYES: Denies visual changes, redness, or discharge. ENT: Denies current rhinorrhea, congestion, sinus pain, otalgia and sore throat. CARDIOVASCULAR: Denies chest pain, palpitations, or edema. RESPIRATORY: Reports cough, situational dyspnea. GASTROINTESTINAL: Denies abdominal pain, nausea, vomiting, diarrhea SKIN: Denies rash or itching. MUSCULOSKELETAL: Denies myalgia. NEUROLOGIC: Denies headache. All systems reviewed & are unremarkable except as noted in HPI and below PMFSH Past Medical History Medical History Asthma as child Depression HLD (hyperlipidemia) IBS (irritable bowel syndrome) Surgical History Surgical History H/O laparoscopy Family History Family History Sibling Family history of cardiovascular disease Mother Acute myocardial infarction, Onset Age: 84 Father Acute myocardial infarction, Onset Age: 90 Other Arthritis Family history of congenital heart disease Heart disease Hypertension Social History Social History Smoking status: Never smoker Alcohol intake: current Drinks per week: 2 Substance use: never Do You Feel Safe in your Home?: Yes Lack of Transportation: No Lack of Food: Never True Current Housing: I Have Housing Concerned About Future Housing: No Difficulty Paying Gas/Electric Bills: No Difficulty Paying for Meds: No Currently Unemployed: No Education: Master's Degree or Higher Difficulty w/ Childcare or Family Care: No Living arrangements: with family Additional occupation/education comments: [employer] Gender identity (if verbalized by the patient): Female Comments At time of signature, agree with nursing past medical, surgical, social and family history. There is no relevant family history pertinent to the presenting complaint Exam Narrative: GENERAL: Well-appearing, well-nourished, and in no acute distress. HEAD: Normocephalic EYES: PERRLA, conjunctivae clear ENT: Nares clear. Mucous membranes moist. TM pearly xavier with sharp light reflex bilaterally; no tragal tenderness. Oropharynx not erythematous without lesions. Tonsils not enlarged and without exudate, no drooling, no hoarseness, no trismus, uvula midline. NECK: Supple. No lymphadenopathy CHEST: Clear to auscultation, breath sounds equal. No wheezing, rhonchi, rales, or stridor. No respiratory distress, speaks in full sentences. HEART: Regular rate and rhythm. No murmur heard. SKIN: Warm, dry, no rash. NEURO: Alert and oriented x3. PSYCH: Normal mood and affect Course Course Emergency Course: Patient is aware of diagnosis, understands and agrees to treatment plan. Anticipatory guidance given. Patient agrees to follow-up as directed and is aware of reasons to seek care at the emergency department. Portions of this record may have been created with voice recognition software Level of Care: Express Care Visit Vital Signs Vital signs: Reviewed. MDM - URI/Sore Throat MDM Narrative Medical decision making narrative: Differential diagnosis considered: Daily virus, strep pharyngitis, allergic rhinitis, upper respiratory tract infection, sinusitis, rhinosinusitis, nasopharyngitis. viral pharyngitis, otitis media, otitis externa, pneumonia, bronchitis, viral cough syndrome, viral syndrome, and influenza. Exam findings show no acute concerns or changes; patient is non-toxic appearing and is in no distress. Patient is appropriate for outpatient treatment and follow-up. Lab Data Attestation: I reviewed the patient's lab results. Critical Care Time Critical Care Time Critical Care Time: No Discharge Plan Discharge Clinical Impression: Lower respiratory tract infection Patient Disposition: Home Condition: Stable Instructions: Antibiotic Form, Acute Bronchitis (ED) Additional Instructions: Take medication as prescribed Recommend antihistamine such as Benadryl at night time and Zyrtec or Mallika during the day Also, recommend symptomatic treatment includes: rest, fluids, and increase humidity of the air at home. Recommend Acetaminophen as directed on the bottle to reduce fever, pain, headache. Avoid smoking/second-hand smoke. Please schedule a follow-up visit with your personal physician for further evaluation and treatment within 3-5days. Including recheck and discussion of your blood pressure. If your symptoms persist, change or worsen significantly before you can contact your personal physician then please, without delay, go to the emergency department for further evaluation. Patient Language: Citizen Of [place] Prescriptions: New benzonatate 200 mg capsule 200 mg PO TID PRN (Reason: cough) Qty: 14 0RF azithromycin [Zithromax Z-Lorne] 250 mg tablet See Rx Instructions .ROUTE .COMPLEX Qty: 6 0RF Rx Instructions: take 500 mg today (day 1), then 250 mg for 4 days (days 2-5) methylprednisolone [Medrol (Lorne)] 4 mg tablets,dose pack See Rx Instructions .ROUTE .COMPLEX Qty: 21 0RF Rx Instructions: orally per package directions No Action ezetimibe 10 mg tablet fluticasone propionate 50 mcg/actuation spray,suspension See Rx Instructions .ROUTE .COMPLEX Dose Instruction: SHAKE LIQUID AND USE 2 SPRAYS IN EACH NOSTRIL DAILY Rx Instructions: SHAKE LIQUID AND USE 2 SPRAYS IN EACH NOSTRIL DAILY PRN folic acid 1 mg tablet 1 mg PO DAILY spironolactone 100 mg tablet 100 mg PO DAILY alprazolam 0.25 mg tablet 0.25 mg PO QHS meclizine 25 mg tablet 25 mg PO BID PRN (Reason: dizziness) Qty: 60 0RF ondansetron HCl 4 mg tablet 4 mg PO Q6H PRN (Reason: nausea and vomiting) Qty: 20 0RF albuterol sulfate 90 mcg/actuation HFA aerosol inhaler 1 inh inhalation Q4H PRN (Reason: shortness of breath or wheezing) Qty: 8.5 3RF alendronate 70 mg tablet 70 mg PO WEEKLY Qty: 12 2RF atorvastatin 10 mg tablet See Rx Instructions .ROUTE .COMPLEX Qty: 18 0RF Rx Instructions: Take 1/2 tablet PO 3 times per week; nortriptyline 25 mg capsule See Rx Instructions .ROUTE .COMPLEX Qty: 180 2RF Dose Instruction: TAKE 2 CAPSULES BY MOUTH DAILY Rx Instructions: TAKE 2 CAPSULES BY MOUTH DAILY Follow-up/Referrals: Harry Courtney MD [Primary Care Provider] - Time of Disposition: 08:47
[2024-12-25 08:26] VITALS: BP 90/66; PULSE 78; RESP 16; TEMP 36; O2SAT 100
== END 2024-12-25 08:59 | disposition home or self-care (01) ==
PROVIDERS: Emergency Provider Nurse Practitioner; PCP Emergency Medicine
DX: J22 Unspecified acute lower respiratory infection (principal)
CPT/HCPCS: 99213; G0463

== ENCOUNTER 2025-01-07 12:31 | Emergency (ER) | payer MEDICARE, SELFPAY ==
[2025-01-07 12:44] VITALS: BP 123/82; PULSE 76; RESP 16; TEMP 36.1; O2SAT 100
--- NOTE | 2025-01-07 14:26 | ED.FEMALEGU ---
HPI - Female Genitourinary General Chief complaint: Urogenital-Female Stated complaint: Uti Symptoms Time Seen by Provider: 01/07/25 13:25 Source: patient and RN notes reviewed Mode of arrival: ambulatory Limitations: no limitations History of Present Illness HPI Narrative: 74-year-old female presents Express Care complaining of urinary symptoms since last night. Patient reports having dysuria, increased frequency, and hesitancy. Patient denies any fevers, abdominal pain, body aches, chills, nausea, vomiting, diarrhea. Patient took of previous prescription of pyrdium to help with urinary symptoms. Related Data Home Medications ?Medication ?Instructions ?Recorded ?Confirmed ?Last Taken ?Type ezetimibe 10 mg tablet 10 mg PO HS 08/19/21 01/07/25 Unknown History fluticasone propionate 50 See Rx Instructions .Route .COMPLEX 02/27/23 01/07/25 Unknown History mcg/actuation nasal spray,suspension spironolactone 100 mg tablet 100 mg PO DAILY 02/27/23 01/07/25 Unknown History alprazolam 0.25 mg tablet 0.25 mg PO QHS 02/19/24 01/07/25 Unknown History Allergies Allergy/AdvReac Type Severity Reaction Status Date / Time Penicillins Allergy Intermediate RASH Verified 01/07/25 12:44 Review of Systems Review of Systems: CONSTITUTIONAL: Denies fever, chills, body aches, or sweats. EYES: Denies visual changes, redness, or discharge. ENT: Denies rhinorrhea, congestion, sore throat, or otalgia. CARDIOVASCULAR: Denies chest pain, palpitations, or edema. RESPIRATORY: Denies cough or dyspnea. GASTROINTESTINAL: Denies abdominal pain, nausea, vomiting, or diarrhea. GENITOURINARY: Positive for dysuria, increased frequency, hesitancy. Negative for hematuria. SKIN: Denies rash or itching. MUSCULOSKELETAL: Denies back pain, joint pain, or myalgia. NEUROLOGIC: Denies headache, numbness, or weakness. PSYCHIATRIC: Denies anxiety or depression. All other systems reviewed are negative, except as documented in HPI. [facility] Past Medical History Medical History IBS (irritable bowel syndrome) Asthma as child Depression HLD (hyperlipidemia) Surgical History Surgical History H/O laparoscopy Family History Family History Sibling Family history of cardiovascular disease Mother Acute myocardial infarction, Onset Age: 84 Father Acute myocardial infarction, Onset Age: 90 Other Arthritis Family history of congenital heart disease Heart disease Hypertension Social History Social History Smoking status: Never smoker Alcohol intake: current Drinks per week: 2 Substance use: never Do You Feel Safe in your Home?: Yes Lack of Transportation: No Lack of Food: Never True Current Housing: I Have Housing Concerned About Future Housing: No Difficulty Paying Gas/Electric Bills: No Difficulty Paying for Meds: No Currently Unemployed: No Education: Master's Degree or Higher Difficulty w/ Childcare or Family Care: No Living arrangements: with family Additional occupation/education comments: [employer] Gender identity (if verbalized by the patient): Female Comments At the time of my signature, I reviewed and agree with the nursing past medical, surgical, social, and family history. There is no relevant family history pertinent to the patient complaint. Exam Narrative: GENERAL: This is a well-nourished, well-developed adult, in no apparent distress. They are non ill-appearing, nontoxic appearing. HEAD: normocephalic, atraumatic. EYES: Sclera clear/white. Vision is grossly intact. Conjunctiva normal bilaterally. Extraocular movements intact. EARS: External ears normal,Hearing grossly intact. NOSE: External nose normal THROAT: Mucous membranes moist NECK: Normal range of motion CARDIOVASCULAR: Regular rate and rhythm. Normal S1-S2. No clicks, gallops, rubs, murmurs. RESPIRATORY: Respiratory rate normal, respiratory effort nonlabored, no respiratory distress. Lung sounds clear to auscultation throughout. Lung sounds equal bilaterally. No adventitious lung sounds. GASTROINTESTINAL: Abdomen soft, flat, non-tender, nondistended. Bowel sounds are active. No hepato-splenomegaly, or palpable masses. No guarding. No rebound tenderness. SKIN: warm, Dry, intact with no suspicious lesions or rash, good texture and turgor. NEURO: awake, alert, and oriented to person, place and time. There were no obvious focal neurologic abnormalities. EXTREMITIES: No joint tenderness, effusion, or edema noted. BACK: Nontender without deformity. No CVA tenderness. Course Course Emergency Course: Portions of this record may have been created with voice recognition software Level of Care: Express Care Visit Vital Signs Vital signs: Vital Signs Temperature 96.9 F L 01/07/25 12:44 Pulse Rate 76 01/07/25 12:44 Respiratory Rate 16 01/07/25 12:44 Blood Pressure 123/82 01/07/25 12:44 Pulse Oximetry 100 01/07/25 12:44 Temperature 96.9 F L 01/07/25 12:44 Pulse Rate 76 01/07/25 12:44 Respiratory Rate 16 01/07/25 12:44 Blood Pressure 123/82 01/07/25 12:44 Pulse Oximetry 100 01/07/25 12:44 MDM - Female Genitourinary MDM Narrative Medical decision making narrative: Unable to perform urine dipstick due to patient taking Pyridium. Urine culture pending. Patient's symptoms are consistent with a urinary tract infection. Offered patient to wait for culture results or to go ahead and start treatment and she elected to start treatment for UTI. Previous culture previous urinary tract infection showed Morganella morganii which was resistant to multiple antibiotics. Will treat with ciprofloxacin to cover for the strain awaiting culture results. Discussed physical exam findings. Advised supportive measures and signs/symptoms to go to the ER. Pt is appropriate for outpt treatment and f/u. Differential Diagnosis Differential diagnosis: Likely urinary tract infection, cystitis and other (Pyelonephritis) Discharge Plan Discharge Clinical Impression: UTI (urinary tract infection) Patient Disposition: Home Condition: Stable Instructions: Antibiotic Form, Urinary Tract Infection in Women (ED) Additional Instructions: Take the antibiotic as prescribed The urine will be sent of for a culture to identify what type of bacteria is causing your infection. If the culture shows that the antibiotic will not get rid of your infection, you will be notified and a new antibiotic will be called in for you. Increase water intake you will need to follow up with your PCP 3-5 days. Go to the ER for any worsening symptoms, abdominal pain, fevers, nausea, vomiting, or any other concerns Patient Language: Icelandic Prescriptions: New ciprofloxacin HCl 250 mg tablet 250 mg PO Q12H 3 Days Qty: 6 0RF No Action ezetimibe 10 mg tablet 10 mg PO HS fluticasone propionate 50 mcg/actuation spray,suspension See Rx Instructions .ROUTE .COMPLEX Dose Instruction: SHAKE LIQUID AND USE 2 SPRAYS IN EACH NOSTRIL DAILY Rx Instructions: SHAKE LIQUID AND USE 2 SPRAYS IN EACH NOSTRIL DAILY PRN spironolactone 100 mg tablet 100 mg PO DAILY alprazolam 0.25 mg tablet 0.25 mg PO QHS albuterol sulfate 90 mcg/actuation HFA aerosol inhaler 1 inh inhalation Q4H PRN (Reason: shortness of breath or wheezing) Qty: 8.5 3RF alendronate 70 mg tablet 70 mg PO WEEKLY Qty: 12 2RF atorvastatin 10 mg tablet See Rx Instructions .ROUTE .COMPLEX Qty: 18 0RF Rx Instructions: Take 1/2 tablet PO 3 times per week; nortriptyline 25 mg capsule See Rx Instructions .ROUTE .COMPLEX Qty: 180 2RF Dose Instruction: TAKE 2 CAPSULES BY MOUTH DAILY Rx Instructions: TAKE 2 CAPSULES BY MOUTH DAILY Follow-up/Referrals: Harry Courtney MD [Primary Care Provider] - Time of Disposition: 13:27
== END 2025-01-07 13:31 | disposition home or self-care (01) ==
PROVIDERS: PCP Emergency Medicine
DX: N39.0 Urinary tract infection, site not specified (principal); E78.5 Hyperlipidemia, unspecified; F32.A Depression, unspecified
CPT/HCPCS: 87086; 99213; G0463

== ENCOUNTER 2025-03-10 09:23 | Outpatient (CLI) | payer MEDICARE, SELFPAY ==
--- OUTSIDE RECORDS SUMMARY | 2007-01-08 08:15 | XMS_ITS | Continuity of Care Document ---
Author Organization [facility] Address [address] [place] [address] Phone Care Team Providers Care Pan Tank Worker Name Role Phone Filiberto Goyal Unavailable Unavailable Procedures Procedure Date Eye Exam, New Patient Advance Directives Directive Yes / No Effective Date File Name No Information Encounters Encounter Description Practice Location Reason(s) For Visit Diagnoses Date Provider Providers Copied on Encounter [facility], [address], [place], [place], [id number], [place] tel:[phone] [facility] No Information [address]. [address] , [address], [place], [address], [place]. tel:[phone] Referring Provider: Abdullahi Arroyo OD, [address] [place], [address]. tel:[phone] Family History Family Member Type Diagnosis Age At Onset No Information Payers Payer name Insurance type Covered constitution party ID Authoriza tion(s) No Information Social History Type Description Quantity Date Captured Comments Sex Female Smoking Status No Information Chief Complaint And Reason For Visit No Information Reason For Referral Reason For Referral No Information History Of Present Illness Encounter Date Complaint History Of Prese nt Illness No Information Functional Status Date Functional Assessmen t No Information Instructions Date Instruction Additional Infor mation No Information Assessments Type Assessment Date No Information Patient Care Teams Name Effective Dates (start - stop) Status Members No Information
--- OUTSIDE RECORDS SUMMARY | 2017-03-13 10:00 | XMS_ITS | Continuity of Care Document ---
Author Organization [facility] Address [address] [place] [address] Phone Care Team Providers Care Construction Sales Manager Name Role Phone Mirza OZUNA MD, Boaz Unavailable Unavaila ble Allergies, Adverse Reactions, Alerts Substance Reaction Status Criticality Penicillins Rash Active No Information Medications Medication Instructions Dosage Effective Dates (start - stop) Status Comments SIMVASTATIN (unknown strength) Not Available - Active PREVACID (unknown strength) Not Available - Active TRAZODONE HCL (unknown strength) Not Available - Active Procedures Procedure Date Office/outpatient visit,est, mod 2016 Asp/inject major joint or bursa w/o US g uidance Kenalog Triamcinolone acetonide inj X-ray exam knee, 4+ views Office/outpatient visit,[facility] 2016 Advance Directives Directive Yes / No Effective Date File Name No Information Encounters Encounter Description Practice Location Reason(s) For Visit Diagnoses Date Provider Providers Copied on Encounter Office/outpat ient visit,est, mod [facility], [address], [id number], [place] tel:[phone] [facility] Left knee (chief complaint) Unilateral primary osteoarthri tis, left knee 7 Mirza cheung. [facility] [facility], [address] [address], [place], [place], [address] , [place]. tel: [phone] Referring Provider: Boaz Blue MD D, [facility] [address], [place], [address]. tel:[phone] Office/outpat ient visit,new, mod [facility], [address], [place], [place], [id number], tel:[phone] [facility] Left knee pain (chief complaint) Unilateral primary osteoarthri tis, left kneeStrain of other muscle of post muscle group at left lower leg level, initial encounter Mirza Gagnon er. [address] [facility], [address], [place], [place], [address] , [place]. tel: [phone] Referring Provider: Boaz Luu, [address] [facility] [address] [facility], [place], [address]. tel:[phone] Family History Family Member Type Diagnosis Age At Onset Father Problem (finding) Heart trouble Father Problem (finding) hypertension Mother Problem (finding) hypertension Brother Problem (finding) Heart trouble Mother Problem (finding) Heart trouble Payers Payer name Insurance type Covered green party ID Authoriza tion(s) [place] W[place] Part B MB [id number] [facility] [id number] mDialog [id number] Social History Type Description Quantity Date Captured Comments Alcohol Use Details Unknown Caffeine Use Details Unknown Tobacco Use Status No Information Smoking Status No Information Sex Female Chief Complaint And Reason For Visit From encounter dated '03/13/2017 15:00'. Left knee (chief complaint) Reason For Referral Reason For Referral No Information Plan Of Treatment Date Type Action Status Referral Ordered: X-ray exam knee, 4+ views LT ordered History Of Present Illness Encounter Date Complaint History Of Prese nt Illness Left knee Left knee pain Duration: 12 Day s. Location: left knee. The pain radiates to the left thigh. The pain is aching and throbbing. Context: sports injury (knocked over by a dog). The pain is aggravated by climbing (and descending) stairs. The pain is relieved by ice and OTC medicines (She ibuprofen). Associated symptoms include crepitus, decreased mobility, joint tenderness and popping. Pertinent negatives include bruising, difficulty initiating sleep, joint instability, limping, locking, nocturnal awakening, nocturnal pain, numbness, spasms, swelling, tingling in the arms, tingling in the legs and weakness. Hand Dominance: right. Additional information: jodie was knocked down by a large dog 12 days ago. Functional Status Date Functional Assessmen t No Information Instructions Date Instruction Additional Infor mation No Information Assessments Type Assessment Date assessment Unilateral primary osteoarthriti s, left knee Patient Care Teams Name Effective Dates (start - stop) Status Members No Information
--- OUTSIDE RECORDS SUMMARY | 2023-08-26 06:15 | XMS_ITS | Continuity of Care Document ---
Author Organization [facility] Address [address] [facility] [address] [place] [address] Phone Care Team Providers Care Purchasing And Claims Supervisor Name Role Phone Fox Vides DO Unavailable [...] Copied on Encounter Offic/outpt E&m Estab Low-mod [facility], [address] [address], [place], [place], [id number], tel:[phone] /[facility] Lumbar (chief complaint) Right hip painLumbar spondylosisLu mbar degenerative disc diseaseLumbar radiculopathy Lumbar spine painIt band syndrome, right Aug- 4 Peewee Braxton. [address] [facility], [facility] [address], [place], [place], [id number] , [place]. tel:[phone] Referring Provider: Fox Vides, [address] [facility] [address] [facility], [place], [address] . tel:[phone] Offic/outpt E&m New Mod-hi 45 [facility], [address] [address], [place], [place], [id number], [place] tel:[phone] /[facility] Right hip (chief complaint) Lumbar spine painRight hip painLumbar degenerative disc diseaseLumbar spondylosisLu mbar radiculopathy It band syndrome, right 4 Peewee Braxton. [address] [facility], [facility] [address], [place], [place], [address] , [place]. tel:[phone] Referring Provider: Fox Vides, [address] [facility] [address], [place], [address] . tel:[phone] Family History Family Member Type Diagnosis Age At Onset Brother Problem (finding) Cardiovascular disease Mother Problem (finding) Cardiovascular disease Mother Problem (finding) Gout Brother Problem (finding) Gout Father Problem (finding) Cardiovascular disease Mother Problem (finding) Colitis Mother Problem (finding) Migraines Payers Payer name Insurance type Covered democrat ID Authoriza tion(s) Aetna (R) CI [id number] Social History Type Description Quantity Date Captured [...] weekly. She reports she was seen in [place]. No imaging or records available.6 weeks of [...] I have also encouraged her to use [id number]-[id number] Voltaren over the trochanter on the right. She can ice after activity as well. I will be happy to follow-up with her on an as-needed basis. Patient Care Teams Name Effective Dates (start - stop) Status Members No Information
--- NOTE | ~2025-03-10 | DEXA_ITS ---
Bone Density Report Name: FRANCO DEVLIN Age: 74 Sex: Female Ethnicity: White Date of : 1950 Indication: postmenopausal; screening for osteoporosis; inflammatory bowel disease; Referring Provider: ROSY LUNDY Study: Bone densitometry was performed. Exam Date: March 10, 2025 Accession number: [id number] Bone Density: Region BMD T-score Z-score Classification AP Spine(L1-L4) 0.965 -0.7 1.6 Normal Femoral Neck (Left) 0.581 -2.4 -0.4 Osteopenia Total Hip (Left) 0.811 -1.1 0.6 Osteopenia Femoral Neck (Right) 0.640 -1.9 0.1 Osteopenia Total Hip (Right) 0.873 -0.6 1.1 Normal Total Hip Mean 0.842 -0.9 0.9 Normal World Health Organization criteria for BMD impression classify patients as: Normal (T-score at or above -1.0), Osteopenia (T-score between -1.0 and -2.5), or Osteoporosis (T-score at or below -2.5). 10-year Fracture Risk(1): Major Osteoporotic Fracture 17% Hip Fracture 5.8% Reported Risk Factors: [place] (), Neck BMD=0.581, BMI=22.6, alcohol use (1) FRAX(R) Version 3.08. Fracture probability calculated for an untreated patient. Fracture probability may be lower if the patient has received treatment. Clinical Information Provided by Patient: Has 3 or more alcoholic drinks per day Has used the following medications: Actonel (i.e. risedronate), Vitamin D Has the following medical conditions: Inflammatory bowel diseases Patient maximum height was 64 Menopause Age: 43 Drinks caffeinated beverages Onset of menses at age 14 Number of children 0 Impression: The patient has low bone mass, based on the Left Femoral Neck T-score. The patient has an estimated ten-year risk of hip fracture of 5.8% and an estimated ten-year risk of major fracture of 17%, based on the WHO FRAX algorithm. The patient has risk factors, including: excessive alcohol use. Discussion: BONE DENSITY IS LOW AT ONE OR MORE SKELETAL SITES. THE PATIENT'S BMD AND CLINICAL RISK FACTORS CONTRIBUTE TO THIS PATIENT'S INCREASED RISK OF FRACTURE. This patient's lowest T-score is low at one or more skeletal sites. It meets the World Health Organization's (WHO) criteria for ?low bone mass? (T-score between -1.0 and -2.5). The patient's 10-year risk of hip fracture as calculated by FRAX exceeds the threshold where pharmacological therapy is recommended by the National Osteoporosis Foundation (NOF). However, all treatment decisions require clinical judgment and consideration of individual patient factors, including patient preferences, comorbidities, previous drug use, risk factors not captured in the FRAX model (e.g., frailty, falls, vitamin D deficiency, increased bone turnover, interval significant decline in bone density) and possible under or overestimation of fracture risk by FRAX. The patient should follow a healthful lifestyle (good nutrition with adequate calcium and vitamin D, and appropriate weight-bearing exercise). Follow-Up: Consider a repeat BMD and Vertebral Fracture Assessment (VFA) exam in 2 years or sooner if medically necessary, to reassess this patient's status. Reported by: ROBBIE on 03/10/2025 10:00:00 AM. Reviewed, dictated and finalized at location A.
--- OUTSIDE RECORDS SUMMARY | 2025-03-10 10:07 | XMS_ITS | Clinical Summary ---
Author Organization [facility] Address [address] [place] [address] Care Team Providers Care Bi Specialist Name Role Phone Maynor Orourke MD Unavailable [phone] Harry Courtney MD Primary Care Provider [phone] Source Comments [facility],non-owned Affiliates and Associated Physician Practices is amultiple site organization consisting of ambulatory clinics and hospital sitesin [place], [place], [place] and [place]. This disclosure is being madepursuant to the Care Everywhere program and may not contain all information available regarding this patient. Last updated 18.[facility] Allergies Active Allergy Reactions Criticality Noted Date Comments Penicillin G Rash Medium Reaction: rash, Medications * Be aware that medications may not be up to date on this document. Alwaysverify current medications with the patient. 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 Gender Identity Not on file Sexual Orientation [...] 10:30 AM CDT Height 162.6 cm (5' 4) 05/02/2023 10:30 AM CDT Body Mass Index [...] 12/11/2001 ZOSTER VACCINE (1 of 2) 12/11/2001 DEPRESSION SCREENING 07/01/2024 05/02/2023 MEDICARE AWV CALENDAR YEAR 2024 COVID-19 VACCINE ( - season) 2025 04/21/2021, 08/03/2020, 07/06/2020 INFLUENZA VACCINE (#1) 2025 , 03/23/2020, 04/10/2018, Additional history exists Respiratory Syncytial [...] this topic Medical Devices Implanted Type Area Construction Mgr Device Identifier Shelf Expiration Date Model / Serial / Lot Cmnt Bone Djo Srg Cblt 40gm Hvisc Strl Implanted:Qty: 1 on 11/22/2021 by Maynor Orourke MD at [facility] Left: Knee [employer] 01/22/2023 [id number] / / [id number] Tray Tib 71mm Kn Cocr I Beam Implanted:Qty: 1 on 11/22/2021 by Maynor Orourke MD at [facility] Left: Knee [employer] 09/23/2031 [id number] / / [id number] Cmpnt Fem Kn Lt Cr Cmnt Prm Vngrd Intlk 67.5 Mm Implanted:Qty: 1 on 11/22/2021 by Maynor Orourke MD at [facility] Left: Knee [employer] 09/23/2031 [id number] / / [id number] Cmpnt Ptlr 28mm 1 Pg Wire Ascnt Arcm Kn Implanted:Qty: 1 on 11/22/2021 by Maynor Orourke MD at [facility] Left: Knee [employer] 11/22/2026 [id number] / / [id number] Brng [id number] Vngrd Arcm Kn Ant Stab Implanted:Qty: 1 on 11/22/2021 by Maynor Orourke MD at [facility] Left: Knee [employer] 09/22/2026 [id number] / / [id number] Insurance AET MEDICARE ADV [facility] MEDICARE ADV Advance Directives * Full Code (Latest Code Status on File) Date Activated Date Inactivated Comments 11/22/2021 1:06 PM 11/23/2021 2:18 PM Care Teams Bi Specialist Relationship Specialty Start Date End Date Harry Courtney MD [address] [facility] [address] [place] [address] PCP - General Internal Medicine 02/16/20 [place] [address] [facility] [address] [place] [address] Orthopedic Surgery 01/21/18
--- OUTSIDE RECORDS SUMMARY | 2025-03-10 10:07 | XMS_ITS | Encounter Summary ---
Author Organization [facility] Address [address] [place] [address] Care Team Providers Care Rouge Miller Name Role Phone Maynor Orourke MD Unavailable Harry Courtney MD Primary Care Provider [phone] Encounter Details Date Type Department Care Team (Late st Contact Info) Description 01/21/2018 Lab Requisition [facility] Care DermPath Lab [address] [facility] [address] [place] [address] Angeli Jenkins MD [address] [facility] [address] [place] [address] Social History Tobacco Use Types Packs/Day Years Used Date Smoking Tobacco: Never Smokeless Tobacco: Never Comments Unknown Sex and Gender Information Value Date Recorded Sex Assigned at Not on file 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 The margin is inked green. Jar 0. [facility] Dermatopathology Laboratory performed the technical component only. [...] characteristic determined by the Dermatopathology Laboratory at [facility]. These tests need not be, and therefore are not, approved by the [place] Food and Drug Administration. The tests are used for clinical purposes. 11:33 AM T DERMATOPATHOLOGY LABORATORY at 1133 CDT Pathology/Cytolog y TISSUE SPECIMEN FROM SKIN / Unknown 01/20/2018 01/21/2018 6:15 AM CDT Angeli Jenkins MD LAB - PATHOLOGY/CYTOLOGY ORD ERABLES Final Result DERMATOPATHOLOGY LABORATORY [facility] - Department of Dermatology [address] [place] [address], 5th Floor Lab B [address] [phone] documented in this encounter Visit Diagnoses Not on filedocumented in this encounter Care Teams Rouge Miller Relationship Specialty Start Date End Date Harry Courtney MD [address] [facility] [address] [place] [address] PCP - General Internal Medicine 02/16/20 [place] [address] [facility] [address] [place] [address] Orthopedic Surgery 01/21/18 documented as of this encounter
--- OUTSIDE RECORDS SUMMARY | 2025-03-10 10:07 | XMS_ITS | Patient Health Record ---
Author Organization [facility] Address [address] [facility] [place]. [address] [place] [address] Care Team Providers Care Community Arts Officer Name Role Phone Harry Courtney MD Primary Care Provider Unavail able Jared Bateman Unavailable [phone] Allergies Allergen (clinical drug ingredient) Drug/Non Drug Allergy documented on EMR Reaction Allergy Type Onset Date Status Penicillin Other Drug Allergy active Results Component Value Reference Range Notes CBC With Differential/Platel et Reviewed date:03/24/2024 07:51:43 AM Interpretation: Performing Lab:[place], [facility][id number] Deepak Marcanoa[place] Padmini Friedman MD Notes/Report: NON-FASTING FASTING:NO FASTING: NO WHITE BLOOD CELL COUNT 7.6 3.8-10.8 Thousand/ uL RED BLOOD CELL COUNT 4.23 3.80-5.10 Million/uL HEMOGLOBIN 13.3 11.7-15.5 g/dL HEMATOCRIT 41.3 35.0-45.0 % MCV 97.6 80.0-100.0 fL MCH 31.4 27.0-33.0 pg MCHC 32.2 32.0-36.0 g/dL RDW 12.5 11.0-15.0 % PLATELET COUNT 348 140-400 Thousand/uL MPV 10.5 7.5-12.5 fL ABSOLUTE NEUTROPHILS 4659 2055-3051 cells/uL ABSOLUTE LYMPHOCYTES 2105 850-3900 cells/uL ABSOLUTE MONOCYTES 646 200-950 cells/uL ABSOLUTE EOSINOPHILS 129 15-500 cells/uL ABSOLUTE BASOPHILS 61 0-200 cells/uL NEUTROPHILS 61.3 LYMPHOCYTES 27.7 MONOCYTES 8.5 EOSINOPHILS 1.7 BASOPHILS 0.8 Pathology Report Reviewed date:05/13/2024 01:27:02 PM Interpretation: [...] PAS stain. Textual Pathology Report SEE NOTES Xray Small Bowel Series Reviewed date:05/08/2024 06:49:04 AM Interpretation: Performing Lab: Notes/Report: Reason For Referral No Information Medications Medication [...] Problem Status W/U Status Risk Notes Problem 282705010 Abdominal cramping (R10.9) Active confirmed Problem 335446569 Abnormal CT scan, colon (R93.3) Active confirmed Problem [id number] Irregular bowel habits (R19.8) Active confirmed Vital Signs Height 65 in 03/19/2024 Weight 133 lbs 03/19/2024 BMI 22.13 kg/m2 03/19/2024 Procedures Procedure Date Ordered Date Performed Result Body Sit e Upper Endoscopy 03/19/2024 N/A Encounters Encounter Location Date Provider Diagnosis [address] [place] [address] 03/19/2024 Jared Bateman Melena K92.1 ; Diarrhea R19.7 ; Colon cancer screening Z12.11 ; Heartburn R12 and Abdominal pain R10.9 [facility] [place] [address] [place] [address] 05/02/2024 Jared Bateman Heartburn R12 ; Melena K92.1 and Other specified disease of esophagus K22.[address] [place] [address] 03/17/2024 Jared Bateman [address] [place] [address] 04/28/2024 Jared Bateman [address] [place] [address] 05/02/2024 Jared Bateman Melena K92.[address] [place] [address] 05/18/2024 Jared Bateman Assessments Encounter Date Diagnosis [...] Date [employer] Medicare Ppo E2 [address] [place] [address] [id number] Renetta Galindo Self - patient is the insured 4 Medical (General) History Medical History History ICD Code Hemorrhoids IBS Asthma Hearing Loss GERD Surgical History Surgery Date(Month/Year) Colonoscopy:The examined por tion of the ileum was normal. The entire examined colon is normal. Hemorrhoids. No specimens collected. 10/2021 Joint Replacement
--- OUTSIDE RECORDS SUMMARY | 2025-03-10 10:07 | XMS_ITS | Clinical Summary ---
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 Gender Identity Not on file Sexual Orientation Not on file Last Filed Vital Signs Vital Sign Reading Time Taken Comments Blood Pressure 147/91 06/07/2023 10:07 AM WRINGER OPERATOR Pulse 67 06/07/2023 10:06 AM WRINGER OPERATOR Temperature 36.3 C (97.3 F) 06/08/2022 2:00 PM WRINGER OPERATOR Respiratory Rate 10 06/07/2023 10:06 AM WRINGER OPERATOR Oxygen Saturation 99% 06/07/2023 10:06 AM WRINGER OPERATOR Inhaled Oxygen Concentration - - Weight 61.2 kg (135 lb) 06/07/2023 10:06 AM WRINGER OPERATOR Height 165.1 cm (5' 5) 01/31/2022 11:46 AM CDT Body Mass Index [...] 01/29/2015 OSTEOPOROSIS SCREENING 12/11/2016 INFLUENZA VACCINE (#1) 2025 , 03/23/2020, 04/24/2016, Additional history exists COVID-19 Vaccine (2024-2 6 season) 2025 04/21/2021, 08/03/2020, 07/06/2020 PNEUMOCOCCAL VACCINE 50+ YEARS Completed 0 12/29/2020, 07/02/2018, 07/01/2013 Insurance [employer] PPO [facility] Care Teams Skidway Worker Relationship Specialty Start Date End Date Harry Courtney MD [address] [place] [id number] PCP - General Internal Medicine 09/21/21
--- OUTSIDE RECORDS SUMMARY | 2025-03-10 10:07 | XMS_ITS | Encounter Summary ---
Author Organization [facility] Address [address] [place] [address] Care Team Providers Care Cataract Lens Generator Name Role Phone Maynor Orourke MD Unavailable Harry Courtney MD Primary Care Provider [phone] Encounter Details Date Type Department Care Team (Late st Contact Info) Description 03/18/2018 Lab Requisition [facility] Care DermPath Lab [address] [facility], [place] [address] Angeli Jenkins MD [address] 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 Jar 0. [facility] Dermatopathology Laboratory performed the technical component [...] characteristic determined by the Dermatopathology Laboratory at [facility]. These tests need not be, and therefore are not, approved by the [place] Food and Drug Administration. The tests are used for clinical purposes. 8 4:22 PM CDT DERMATOPATHOLOGY LABORATORY at 1622 CDT Pathology/Cytolog y TISSUE SPECIMEN FROM SKIN / Unknown 03/17/2018 03/18/2018 6:25 AM CDT Angeli Jenkins MD LAB - PATHOLOGY/CYTOLOGY ORD ERABLES Final Result DERMATOPATHOLOGY LABORATORY [facility] - Department of Dermatology [address] [place] [address], 5th Floor Lab [address] [phone] documented in this encounter Visit Diagnoses Not on filedocumented in this encounter Care Teams Cataract Lens Generator Relationship Specialty Start Date End Date Harry Courtney MD [address] [facility] [address] [place] [address] PCP - General Internal Medicine 02/16/20 [place] [address] [place] [address] Orthopedic Surgery 01/21/18 documented as of this encounter
== END 2025-03-10 09:24 | disposition home or self-care (01) ==
LOC: ANHFOHIMG 09:24
PROVIDERS: PCP Emergency Medicine; Visit Provider Emergency Medicine
DX: Z78.0 Asymptomatic menopausal state (principal); M85.852 Other specified disorders of bone density and structure, left thigh; M85.851 Other specified disorders of bone density and structure, right thigh
CPT/HCPCS: 77080

== ENCOUNTER 2025-03-18 10:58 | Outpatient (CLI) | payer MEDICARE, SELFPAY ==
--- OUTSIDE RECORDS SUMMARY | 2007-01-08 08:15 | XMS_ITS | Continuity of Care Document ---
Author Organization [facility] Address [address] [place] [address] Phone Care Team Providers Care Employee Relations Manager Name Role Phone Filiberto Goyal Unavailable Unavailable Procedures Procedure Date Eye Exam, New Patient Advance Directives Directive Yes / No Effective Date File Name No Information Encounters Encounter Description Practice Location Reason(s) For Visit Diagnoses Date Provider Providers Copied on Encounter [facility], [address], [place], [place], [id number], [place] tel:[phone] [facility] No Information [address]. [address] , [address], [place], [address], [place]. tel:[phone] Referring Provider: Abdullahi Arroyo OD, [address] [place], [address]. tel:[phone] 1911 Family History Family Member Type Diagnosis Age At Onset No Information Payers Payer name Insurance type Covered republican ID Authoriza tion(s) No Information Social History [...]
--- OUTSIDE RECORDS SUMMARY | 2017-03-13 10:00 | XMS_ITS | Continuity of Care Document ---
Author Organization [facility] Address [address] [place] [address] Phone Care Team Providers Care Carpentry Teacher Name Role Phone Mirza OZUNA MD, Boaz [...] inj X-ray exam knee, 4+ views Office/outpatient visit,[facility], [facility] 2016 Advance Directives Directive Yes / No Effective Date File Name No Information Encounters Encounter Description Practice Location Reason(s) For Visit Diagnoses Date Provider Providers Copied on Encounter Office/outpat ient visit,est, mod [facility], [address], [id number], [place] tel:[phone] [facility] Left knee (chief complaint) Unilateral primary osteoarthri tis, left knee 7 Mirza cheung. [facility] [facility], [address] [address], [place], [place], [id number] , [place]. tel: [phone] Referring Provider: Boaz Blue MD D, [facility] [address], [place], [address]. tel:[phone] Office/outpat ient visit,new, mod [facility], [address], [place], [place], [address], tel:[phone] [facility] Left knee pain (chief complaint) Unilateral primary osteoarthri tis, left kneeStrain of other muscle of post muscle group at left lower leg level, initial encounter Mirza Gagnon er. [address] [facility], [address], [place], [place], [address] , [place]. tel: [phone] Referring Provider: Boaz Luu, [address] [facility] [address] [facility], [place], [address]. tel:[phone] Family History Family Member Type Diagnosis Age At Onset Father Problem (finding) Heart trouble Father Problem (finding) hypertension Mother Problem (finding) hypertension Brother Problem (finding) Heart trouble Mother Problem (finding) Heart trouble Payers Payer name Insurance type Covered constitution party ID Authoriza tion(s) Medicare [place] WPS Part B MB [id number] [facility] [id number] [employer] [id number] Social History Type Description Quantity Date Captured [...]
--- OUTSIDE RECORDS SUMMARY | 2023-08-26 06:15 | XMS_ITS | Continuity of Care Document ---
Author Organization [facility] Address [address] [place] [address] Phone Care Team Providers Care Spreading Machine Operator Name Role Phone Fox Vides DO Unavailable Unavailable Allergies, Adverse Reactions, Alerts Substance Reaction Status Criticality Penicillins Other Active No Information Medications Medication Instructions Dosage Effective Dates (start - stop) Status Comments Celebrex 100 mg capsule take 1 capsule b y oral route 2 times every day 100 MG - Active trazodone 50 mg tablet take 1 tablet by oral route every day at bedtime 50 MG - Active nortriptyline 25 mg capsule take 1 capsule by oral route 3 times every day 25 MG - Active ezetimibe 10 mg tablet take 1 tablet by oral route every day 10 MG - Active atorvastatin 10 mg tablet take 1 tablet by oral route every day 10 MG - Active alendronate 70 mg tablet take 1 tablet by oral route every week in the morning, at least 30 min before first food, beverage, or medication of day 70 MG - Active folic acid 20 mg capsule - Active spironolactone 100 mg tablet take 1 tablet by oral route every day 100 MG - Active Procedures Procedure Date Offic/outpt E&m Estab Low-mod 4 Rad Exam Hip; Uni 2/3 Views Rad Exam Spine Lumb 2 View Offic/outpt E&m New Mod-hi 45 4 Advance Directives Directive Yes / No Effective Date File Name Other Directive No N/A N/A WARNING:The information contained in this section is historical and is provided for information only and does not constitute a legal document or any assurance that the information is still accurate. Please verify the information with the ramesh of the legal document before using it for clinical purposes. Encounters Encounter Description Practice Location Reason(s) For Visit Diagnoses Date Provider Providers Copied on Encounter Offic/outpt E&m Estab Low-mod [facility], [address] [address], [place], [place], [id number], tel:[phone] /[facility] Lumbar (chief complaint) Right hip painLumbar spondylosisLu mbar degenerative disc diseaseLumbar radiculopathy Lumbar spine painIt band syndrome, right Aug- 4 Peewee Braxton. [address] [facility], [facility] [address], [place], [place], [id number] , [place]. tel:[phone] Referring Provider: Fox Vides, [address] [facility] [address] [facility], [place], [address] . tel:[phone] Offic/outpt E&m New Mod-hi 45 [facility], [address] [address], [place], [place], [id number], [place] tel:[phone] /[facility] Right hip (chief complaint) Lumbar spine painRight hip painLumbar degenerative disc diseaseLumbar spondylosisLu mbar radiculopathy It band syndrome, right 4 Peewee Braxton. [address] [facility], [facility] [address], [place], [place], [id number] , [place]. tel:[phone] Referring Provider: Fox Vides, [address] [facility] [address], [place], [address] . tel:[phone] Family History Family Member Type Diagnosis Age At Onset Brother Problem (finding) Cardiovascular disease Mother Problem (finding) Cardiovascular disease Mother Problem (finding) Gout Brother Problem (finding) Gout Father Problem (finding) Cardiovascular disease Mother Problem (finding) Colitis Mother Problem (finding) Migraines Payers Payer name Insurance type Covered green party ID Authoriza tion(s) Aetna (R) CI [id number] Social History Type Description Quantity Date Captured Comments Alcohol Use Details Caffeine Use Details Unknown Tobacco Use Status Current non-smoker Smoking Status Never smoker Non-Smoking Tobacco Use Details : No Details Available : No Details Available Sex Female Vital Signs Date / Time: Height Weight BMI Pulse Rate Blood Pressure Temperature Respiratory Rate Body Surface Area Head Circumference Head Circ. Percentile Wt./Rohit. Percentile BMI percentile Pulse Ox Inhaled Ox 11:31 AM 65.00 in 58.967 kg (130.00 lbs) 21.6 3 kg/m eter (2) Chief Complaint And Reason For Visit From encounter dated '08/26/2023 11:15'. Lumbar (chief complaint). Description: Patient is 72 year old female here today for follow up of her lumbar spine. She is here to DTR of MRI L/S. Pain severity is 5-6/10, described as aching and burning. She reports radiating pain to her right knee. Denies numbness or tingling. Aggravating factors include walking. Alleviating factors include Celebrex. She does HEP weekly. Reason For Referral Reason For Referral No Information Plan Of Treatment Date Type Action Status Referral Ordered: Rad Exam Hip; Uni 2/3 Views Right hip ordered Referral Ordered: MRI Lumbar Spine W/O Cont ordered Referral Ordered: Rad Exam Spine Lumb 2 View ordered History Of Present Illness Encounter Date Complaint History Of Prese nt Illness Lumbar Patient is 72 ye ar old female here today for follow up of her lumbar spine. She is here to DTR of MRI L/S. Pain severity is 5-6/10, described as aching and burning. She reports radiating pain to her right knee. Denies numbness or tingling. Aggravating factors include walking. Alleviating factors include Celebrex. She does HEP weekly. Right hip Patient is 72 ye ar old female here today for evaluation of her right hip pain/bursitis. Pain severity is 5-6/10, described as aching and burning. She reports radiating pain to her right knee. Denies numbness or tingling. Aggravating factors include walking. Alleviating factors include Celebrex. She does HEP weekly. She reports she was seen in [place]. No imaging or records available.6 weeks of PT Functional Status Date Functional Assessmen t Pain Score 6/10 Instructions Date Instruction Additional Infor ivan No Information Assessments Type Assessment Date assessment Lumbar spine pain assessment Lumbar degenerative disc disease assessment Lumbar radiculopathy assessment Lumbar spondylosis assessment It band syndrome, right 024 assessment Right hip pain impression The patient was seen today for follow-up after MRI of the lumbar spine. She does have multilevel degenerative disc spaces and mild scoliosis. On the right where she is symptomatic there is some disc degeneration and bulging at the L4-5 level causing mild foraminal narrowing. She does not seem to have any definitive radiculopathy. She describes more of an L3 distribution versus lateral femoral cutaneous distribution. Based on her exam I do think she has some IT band syndrome which could correlate with the scoliosis and pelvic obliquity noted. She does not seem to be tender directly over the trochanter or gluteal musculature. Range of motion does not seem to impact her pain. She is going to continue with her home exercise and stretching program. I did discuss some exercises and online videos that she can reference in regards to IT band syndrome. We have also discussed doing a diagnostic and therapeutic right L4-5 transforaminal injection but at this time she wants to hold off and discuss this with her further. She is using Celebrex and I have also encouraged her to use [id number] Voltaren over the trochanter on the right. She can ice after activity as well. I will be happy to follow-up with her on an as-needed basis. Patient Care Teams Name Effective Dates (start - stop) Status Members No Information
--- NOTE | ~2025-03-18 | XR_ITS ---
EXAMINATION: XR knee RT 3V, 03/18/2025 11:10 CDT HISTORY: M25.569 - Pain in unspecified knee, SWELLING X 1 WEEK COMPARISON: No comparisons available. Findings: No acute fracture or malalignment. Moderate tricompartmental degenerative changes Soft tissues unremarkable. Impression: No acute fracture or malalignment. Reviewed, dictated and finalized at location A. Impression: No acute fracture or malalignment.
--- OUTSIDE RECORDS SUMMARY | 2025-03-18 11:35 | XMS_ITS | Patient Health Record ---
Author Organization [employer] Address [address] [facility] [place]. [address] [place] [id number] Care Team Providers Care Precision Instrument Maker Name Role Phone Harry Courtney MD Primary Care Provider Unavail able Jared Bateman Unavailable [phone] Allergies Allergen (clinical drug ingredient) Drug/Non Drug Allergy documented on EMR Reaction Allergy Type Onset Date Status Penicillin Other Drug Allergy active Results Component Value Reference Range Notes CBC With Differential/Platel et Reviewed date:03/24/2024 07:51:43 AM Interpretation: Performing Lab:[place], [facility]-[id number] Deepak [id number] Padmini Friedman MD Notes/Report: NON-FASTING FASTING:NO FASTING: NO WHITE BLOOD CELL COUNT 7.6 3.8-10.8 Thousand/ uL RED BLOOD CELL COUNT 4.23 3.80-5.10 Million/uL HEMOGLOBIN 13.3 11.7-15.5 g/dL HEMATOCRIT 41.3 35.0-45.0 % MCV 97.6 80.0-100.0 fL MCH 31.4 27.0-33.0 pg MCHC 32.2 32.0-36.0 g/dL RDW 12.5 11.0-15.0 % PLATELET COUNT 348 140-400 Thousand/uL MPV 10.5 7.5-12.5 fL ABSOLUTE NEUTROPHILS [phone] cells/uL ABSOLUTE LYMPHOCYTES 2105 850-3900 cells/uL ABSOLUTE MONOCYTES 646 200-950 cells/uL ABSOLUTE EOSINOPHILS 129 15-500 cells/uL ABSOLUTE BASOPHILS 61 0-200 cells/uL NEUTROPHILS 61.3 LYMPHOCYTES 27.7 MONOCYTES 8.5 EOSINOPHILS 1.7 BASOPHILS 0.8 Xray Small Bowel Series Reviewed date:05/08/2024 06:49:04 AM Interpretation: Performing Lab: Notes/Report: Pathology Report Reviewed date:05/13/2024 01:27:02 PM Interpretation: Performing Lab: Notes/Report: Complete 100 microscopic examination is performed. The findings are included in the diagnosis rendered. Specimen A was evaluated with H&E stain. Specimen A was evaluated with Rapid Giemsa stain. Specimen A was evaluated with Alcian Blue PAS stain. MICROSCOPIC DESCRIPTION A. The specimen is received in a Formalin-filled container labeled with the patient's name and designated GE Junction It contains multiple fragments of colin tissue that measure from 1x1x1 to 2x2x1 mm. The specimen was entirely submitted into a single cassette for processing. GROSSING DESCRIPTION Heartburn. Melena. Z-line irregular at the gastroesophageal junction. CLINICAL HISTORY -Giemsa stain is negative for Helicobacter pylori organisms. -Alcian blue/PAS stain is negative for intestinal metaplasia; no fungal organisms seen. -Gastric cardia type mucosa with chronic inflammation and foveolar hyperplasia. -Squamous mucosa with reflux associated changes. A. GE Junction , Biopsy: DIAGNOSES Textual Pathology Report SEE NOTES Reason For Referral No Information Medications Medication [...] Problem Status W/U Status Risk Notes Problem 471531088 Abdominal cramping (R10.9) Active confirmed Problem [id number] Abnormal CT scan, colon (R93.3) Active confirmed Problem [id number] Irregular bowel habits (R19.8) Active confirmed Vital Signs Height 65 in 03/19/2024 Weight 133 lbs 03/19/2024 BMI 22.13 kg/m2 03/19/2024 Procedures Procedure Date Ordered Date Performed Result Body Sit e Upper Endoscopy 03/19/2024 N/A Encounters Encounter Location Date Provider Diagnosis [address] [address] 03/19/2024 Jared Bateman Melena K92.1 ; Diarrhea R19.7 ; Colon cancer screening Z12.11 ; Heartburn R12 and Abdominal pain R10.9 [facility] [address] [place] [address] 05/02/2024 Jared Bateman Heartburn R12 ; Melena K92.1 and Other specified disease of esophagus K22.[address] [place] [address] 04/28/2024 Jared Bateman [address] [place] [address] 05/02/2024 Jared Bateman Melena K92.[address] [place] [address] 05/18/2024 Jared Bateman Assessments Encounter Date Diagnosis [...] Date [employer] Medicare Ppo E2 [address] [place] [address] [id number] Renetta Galindo Self - patient is the insured 4 Medical (General) History Medical History History ICD Code Hemorrhoids IBS Asthma Hearing Loss GERD Surgical History Surgery Date(Month/Year) Colonoscopy:The examined por tion of the ileum was normal. The entire examined colon is normal. Hemorrhoids. No specimens collected. 10/2021 Joint Replacement
--- OUTSIDE RECORDS SUMMARY | 2025-03-18 11:35 | XMS_ITS | Encounter Summary ---
Author Organization [facility] Address [facility] [place] [address] Care Team Providers Care Data Architect Name Role Phone Maynor Orourke MD Unavailable Harry Courtney MD Primary Care Provider [phone] Encounter Details Date Type Department Care Team (Late st Contact Info) Description 03/18/2018 Lab Requisition [facility] Care DermPath Lab [address] 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 Jar 0. [facility] Dermatopathology Laboratory performed the technical component [...] characteristic determined by the Dermatopathology Laboratory at [facility]. These tests need not be, and therefore are not, approved by the [place] Food and Drug Administration. The tests are used for clinical purposes. 8 4:22 PM CDT DERMATOPATHOLOGY LABORATORY at 1622 CDT Pathology/Cytolog y TISSUE SPECIMEN FROM SKIN / Unknown 03/17/2018 03/18/2018 6:25 AM CDT Angeli Jenkins MD LAB - PATHOLOGY/CYTOLOGY ORD ERABLES Final Result DERMATOPATHOLOGY LABORATORY [facility] - Department of Dermatology [address] [place] [address], 5th Floor Lab [address] [phone] documented in this encounter Visit Diagnoses Not on filedocumented in this encounter Care Teams Data Architect Relationship Specialty Start Date End Date Harry Courtney MD [address] [facility] [address] [place] [address] PCP - General Internal Medicine 02/16/20 [place] [address] [place] [address] Orthopedic Surgery 01/21/18 documented as of this encounter
--- OUTSIDE RECORDS SUMMARY | 2025-03-18 11:35 | XMS_ITS | Encounter Summary ---
Author Organization [facility] Address [address] [facility] [place] [address] Care Team Providers Care Counseling Center Manager Name Role Phone Maynor Orourke MD Unavailable Harry Courtney MD Primary Care Provider [phone] Encounter Details Date Type Department Care Team (Late st Contact Info) Description 01/21/2018 Lab Requisition [facility] Care DermPath Lab [address] [facility] [place] [place] [address] Angeli Jenkins MD [address] 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 The margin is inked green. Jar 0. [facility] Dermatopathology Laboratory performed the technical component only. [...] characteristic determined by the Dermatopathology Laboratory at [facility]. These tests need not be, and therefore are not, approved by the [place] Food and Drug Administration. The tests are used for clinical purposes. 11:33 AM T DERMATOPATHOLOGY LABORATORY at 1133 CDT Pathology/Cytolog y TISSUE SPECIMEN FROM SKIN / Unknown 01/20/2018 01/21/2018 6:15 AM CDT Angeli Jenkins MD LAB - PATHOLOGY/CYTOLOGY ORD ERABLES Final Result DERMATOPATHOLOGY LABORATORY [facility] - Department of Dermatology [address] [place] [address], 5th Floor Lab [address] [phone] documented in this encounter Visit Diagnoses Not on filedocumented in this encounter Care Teams Counseling Center Manager Relationship Specialty Start Date End Date Harry Courtney MD [address] [facility] [address] [place] [address] PCP - General Internal Medicine 02/16/20 [place] [address] [facility] [address] [place] [address] Orthopedic Surgery 01/21/18 documented as of this encounter
--- OUTSIDE RECORDS SUMMARY | 2025-03-18 11:35 | XMS_ITS | Clinical Summary ---
Author Organization [facility] Address [address] [facility] [place] [address] Care Team Providers Care User Interface Engineer Name Role Phone Maynor Orourke MD Unavailable [phone] Harry Courtney MD Primary Care Provider [phone] [facility],non-owned Affiliates and Associated Physician Practices is amultiple site organization consisting of ambulatory clinics and hospital sitesin [place], [place], [place] and [place]. This disclosure is being madepursuant to the Care Everywhere program and may not contain all information available regarding this patient. Last updated 18.[facility] Allergies Active Allergy Reactions Criticality Noted Date Comments Penicillin G Rash Medium Reaction: rash, Medications * Be aware that medications may not be up to date on this document. Alwaysverify current medications with the patient. 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 Gender Identity Not on file Sexual Orientation [...] this topic Medical Devices Implanted Type Area Coconut Cooker Device Identifier Shelf Expiration Date Model / Serial / Lot Cmnt Bone Djo Srg Cblt 40gm Hvisc Strl Implanted:Qty: 1 on 11/22/2021 by Maynor Orourke MD at [facility] Left: Knee [employer] 01/22/2023 [id number] / / [id number] Tray Tib 71mm Kn Cocr I Beam Implanted:Qty: 1 on 11/22/2021 by Maynor Orourke MD at [facility] Left: Knee [employer] 09/23/2031 [id number] / / [id number] Cmpnt Fem Kn Lt Cr Cmnt Prm Vngrd Intlk 67.5 Mm Implanted:Qty: 1 on 11/22/2021 by Maynor Orourke MD at [facility] Left: Knee [employer] 09/23/2031 [id number] / / [id number] Cmpnt Ptlr 28mm 1 Pg Wire Ascnt Arcm Kn Implanted:Qty: 1 on 11/22/2021 by Maynor Orourke MD at [facility] Left: Knee [employer] 11/22/2026 [id number] / / [id number] Brng 48rth19fr Vngrd Arcm Kn Ant Stab Implanted:Qty: 1 on 11/22/2021 by Maynor Orourke MD at [facility] Left: Knee [employer] 09/22/2026 [id number] / / [id number] Insurance AET MEDICARE ADV [facility] MEDICARE ADV Advance Directives * Full Code (Latest Code Status on File) Date Activated Date Inactivated Comments 11/22/2021 1:06 PM 11/23/2021 2:18 PM Care Teams User Interface Engineer Relationship Specialty Start Date End Date Harry Courtney MD [address] [facility] [address] [place] [address] PCP - General Internal Medicine 02/16/20 [place] [address] [facility] [address] [place] [address] Orthopedic Surgery 01/21/18
--- OUTSIDE RECORDS SUMMARY | 2025-03-18 11:35 | XMS_ITS | Clinical Summary ---
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 Gender Identity Not on file Sexual Orientation Not on file Last Filed Vital Signs Vital Sign Reading Time Taken Comments Blood Pressure 147/91 06/07/2023 10:07 AM ORACLE APEX DEVELOPER Pulse 67 06/07/2023 10:06 AM ORACLE APEX DEVELOPER Temperature 36.3 C (97.3 F) 06/08/2022 2:00 PM ORACLE APEX DEVELOPER Respiratory Rate 10 06/07/2023 10:06 AM ORACLE APEX DEVELOPER Oxygen Saturation 99% 06/07/2023 10:06 AM ORACLE APEX DEVELOPER Inhaled Oxygen Concentration - - Weight 61.2 kg (135 lb) 06/07/2023 10:06 AM ORACLE APEX DEVELOPER Height 165.1 cm (5' 5) 01/31/2022 11:46 [...] 0 12/29/2020, 07/02/2018, 07/01/2013 Insurance AET[employer] PPO [facility] Care Teams Yard Person Relationship Specialty Start Date End Date Harry Courtney MD [address] [place] [id number] PCP - General Internal Medicine 09/21/21
== END 2025-03-18 10:59 | disposition home or self-care (01) ==
PROVIDERS: PCP Emergency Medicine; Visit Provider Emergency Medicine
DX: M25.561 Pain in right knee (principal)
CPT/HCPCS: 73562

== ENCOUNTER 2025-04-12 09:09 | Emergency (ER) | payer MEDICARE, SELFPAY ==
[2025-04-12 09:31] LABS: EDUAAPPEAR Clear; EDUABILI Negative (Negative); EDUABLOOD 3+ (Negative); EDUACOLOR1 Yellow; EDUAGLUCOSE Negative (Negative); EDUAKETONE Negative (Negative); EDUALEUKO 2+ (Negative); EDUANITRATE Negative (Negative); EDUAPH 6.0; EDUAPROTEIN Trace (Negative); EDUASPGRAVITY 1.010; EDUAUROBILI 0.2
--- NOTE | 2025-04-12 10:08 | ED.FEMALEGU ---
HPI - Female Genitourinary General Chief complaint: Urogenital-Female Stated complaint: Uti Symptoms Time Seen by Provider: 04/12/25 10:00 Source: patient and RN notes reviewed Mode of arrival: ambulatory Limitations: no limitations History of Present Illness HPI Narrative: 74-year-old female presents Express Care complaining of urinary symptoms for 2 days. Patient reports having dysuria, increased frequency, and hesitancy. Patient denies any fevers, abdominal pain, body aches, chills, nausea, vomiting, diarrhea, flank pain, hematuria, vaginal bleeding, vaginal discharge, or any other symptoms. Patient has not taken anything [id number] for symptoms. Patient denies any significant past medical history. Related Data Home Medications ?Medication ?Instructions ?Recorded ?Confirmed ?Last Taken ?Type ezetimibe 10 mg tablet 10 mg PO HS 08/19/21 03/17/25 Unknown History fluticasone propionate 50 See Rx Instructions .Route .COMPLEX 02/27/23 03/17/25 Unknown History mcg/actuation nasal spray,suspension spironolactone 100 mg tablet 100 mg PO DAILY 02/27/23 03/17/25 Unknown History alprazolam 0.25 mg tablet 0.25 mg PO QHS 02/19/24 03/17/25 Unknown History Allergies Allergy/AdvReac Type Severity Reaction Status Date / Time Penicillins Allergy Intermediate RASH Verified 04/12/25 09:27 Review of Systems Review of Systems: CONSTITUTIONAL: Denies fever, chills, body aches, or sweats. EYES: Denies visual changes, redness, or discharge. ENT: Denies rhinorrhea, congestion, sore throat, or otalgia. CARDIOVASCULAR: Denies chest pain, palpitations, or edema. RESPIRATORY: Denies cough or dyspnea. GASTROINTESTINAL: Denies abdominal pain, nausea, vomiting, or diarrhea. GENITOURINARY: Positive for dysuria, increased frequency, hesitancy. Negative for hematuria, vaginal bleeding, vaginal discharge. SKIN: Denies rash or itching. MUSCULOSKELETAL: Denies back pain, flank pain, joint pain, or myalgia. NEUROLOGIC: Denies headache, numbness, or weakness. PSYCHIATRIC: Denies anxiety or depression. All other systems reviewed are negative, except as documented in HPI. [facility] Past Medical History Medical History IBS (irritable bowel syndrome) Asthma as child Depression HLD (hyperlipidemia) Surgical History Surgical History H/O laparoscopy Family History Family History Sibling Family history of cardiovascular disease Gout Mother Acute myocardial infarction, Onset Age: 84 Father Acute myocardial infarction, Onset Age: 90 Other Arthritis Family history of congenital heart disease Heart disease Hypertension Social History Social History Smoking status: Never smoker Alcohol intake: current Drinks per week: 4 Alcohol use details: wine Substance use: never Substance use type: does not use Do You Feel Safe in your Home?: Yes Lack of Transportation: No Lack of Food: Never True Current Housing: I Have Housing Concerned About Future Housing: No Difficulty Paying Gas/Electric Bills: No Difficulty Paying for Meds: No Currently Unemployed: No Education: Master's Degree or Higher Difficulty w/ Childcare or Family Care: No Living arrangements: with family Additional occupation/education comments: [employer] Gender identity (if verbalized by the patient): Female Comments At the time of my signature, I reviewed and agree with the nursing past medical, surgical, social, and family history. There is no relevant family history pertinent to the patient complaint. Exam Narrative: GENERAL: This is a well-nourished, well-developed adult, in no apparent distress. They are non ill-appearing, nontoxic appearing. HEAD: normocephalic, atraumatic. EYES: Sclera clear/white. Vision is grossly intact. Conjunctiva normal bilaterally. Extraocular movements intact. EARS: External ears normal,Hearing grossly intact. NOSE: External nose normal THROAT: Mucous membranes moist NECK: Normal range of motion CARDIOVASCULAR: Regular rate and rhythm. Normal S1-S2. No clicks, gallops, rubs, murmurs. RESPIRATORY: Respiratory rate normal, respiratory effort nonlabored, no respiratory distress. Lung sounds clear to auscultation throughout. Lung sounds equal bilaterally. No adventitious lung sounds. GASTROINTESTINAL: Abdomen soft, flat, non-tender, nondistended. Bowel sounds are active. No hepato-splenomegaly, or palpable masses. No guarding or rigidity. No rebound tenderness. SKIN: warm, Dry, intact with no suspicious lesions or rash, good texture and turgor. NEURO: awake, alert, and oriented to person, place and time. There were no obvious focal neurologic abnormalities. EXTREMITIES: No joint tenderness, effusion, or edema noted. BACK: Nontender without deformity. No CVA tenderness. Course Course Emergency Course: Portions of this record may have been created with voice recognition software Level of Care: Express Care Visit MDM - Female Genitourinary MDM Narrative Medical decision making narrative: Urine dipstick shows evidence of urinary tract infection. Urine culture pending. Symptoms consistent with urinary tract infection. Will treat with ciprofloxacin. Discussed physical exam findings. Advised supportive measures and signs/symptoms to go to the ER. Pt is appropriate for outpt treatment and f/u. Differential Diagnosis Differential diagnosis: Likely urinary tract infection, cystitis and other (Pyelonephritis) Lab Data Attestation: I reviewed the patient's lab results. Labs: Lab Results 04/12/25 Range/Units 09:28 POC Urine Color Yellow POC Urine Clarity Clear POC Urine pH 6.0 POC Ur Specif [place] 1.010 POC Urine Protein Trace (Negative) POC Ur Glucose (UA) Negative (Negative) POC Urine Ketones Negative (Negative) POC Urine Blood 3+ (Negative) POC Urine Nitrite Negative (Negative) POC Urine Bilirubin Negative (Negative) POC Urine Urobilinogen 0.2 POC U Leukocyte Esteras 2+ (Negative) Discharge Plan Discharge Clinical Impression: Urinary tract infection Qualifiers: Urinary tract infection type: site unspecified Hematuria presence: with hematuria Qualified Code(s): N39.0 - Urinary tract infection, site not specified Patient Disposition: Home Condition: Stable Instructions: Antibiotic Form, Urinary Tract Infection in Women (ED) Additional Instructions: Take the antibiotic as prescribed The urine will be sent of for a culture to identify what type of bacteria is causing your infection. If the culture shows that the antibiotic will not get rid of your infection, you will be notified and a new antibiotic will be called in for you. Increase water intake you will need to follow up with your PCP 3-5 days. Go to the ER for any worsening symptoms, abdominal pain, fevers, nausea, vomiting, or any other concerns Patient Language: Namibian Prescriptions: New ciprofloxacin HCl 250 mg tablet 250 mg PO Q12H 5 Days Qty: 10 0RF No Action ezetimibe 10 mg tablet 10 mg PO HS fluticasone propionate 50 mcg/actuation spray,suspension See Rx Instructions .ROUTE .COMPLEX Dose Instruction: SHAKE LIQUID AND USE 2 SPRAYS IN EACH NOSTRIL DAILY Rx Instructions: SHAKE LIQUID AND USE 2 SPRAYS IN EACH NOSTRIL DAILY PRN spironolactone 100 mg tablet 100 mg PO DAILY alprazolam 0.25 mg tablet 0.25 mg PO QHS alendronate 70 mg tablet 70 mg PO WEEKLY Qty: 12 2RF nortriptyline 25 mg capsule See Rx Instructions .ROUTE .COMPLEX Qty: 180 2RF Dose Instruction: TAKE 2 CAPSULES BY MOUTH DAILY Rx Instructions: TAKE 2 CAPSULES BY MOUTH DAILY methylprednisolone [Medrol ([place])] 4 mg tablets,dose pack See Rx Instructions PO PER PKG DIR Qty: 21 0RF Rx Instructions: PO PER PKG DIR for 6 days atorvastatin 10 mg tablet See Rx Instructions .ROUTE .COMPLEX Qty: 18 0RF Rx Instructions: Take 1/2 tablet PO 3 times per week; Follow-up/Referrals: Harry Courtney MD [Primary Care Provider, Internal Medicine] Time of Disposition: 10:08
== END 2025-04-12 10:11 | disposition home or self-care (01) ==
PROVIDERS: PCP Emergency Medicine
DX: N39.0 Urinary tract infection, site not specified (principal); E78.5 Hyperlipidemia, unspecified; F32.A Depression, unspecified
CPT/HCPCS: 81003; 87077; 87086; 87186; 99213; G0463